=== PATIENT | male | born 1950 | race Asian ===

== ENCOUNTER 2018-01-07 10:11 | Inpatient (IN) | payer OTHER, MEDICAID ==
[~2018-01-07] VITALS: Ht 170.2 cm; Wt 68.5 kg
[2018-01-07] VITALS (18 sets, daily range): BP systolic 105–146; BP diastolic 45–81
[2018-01-07] MEDS ORDERED: ASPIR 8181 MG ORAL (10:15)
[2018-01-07] MEDS ORDERED: Sodium Chloride 500ML 500 ML IV ONE (10:15)
[2018-01-07] MEDS ORDERED: ACTOS15 MG ORAL (10:34)
[2018-01-07 10:41] LABS: MEAN CORPUSCULAR VOLUME 99 FL (80-99); PLATELET COUNT 245 K/UL (150-450); RED BLOOD COUNT 1.81 M/UL (4.70-6.10); RED CELL DISTRIBUTION WIDTH 12.6 % (11.6-14.8); WHITE BLOOD COUNT 6.1 K/UL (4.8-10.8)
[2018-01-07] MEDS ORDERED: GLIPIZIDE5 MG ORAL (10:44)
[2018-01-07] MEDS ORDERED: TRAVATAN Z5 ML OP (10:44)
[2018-01-07] MEDS ORDERED: METFORMIN HCL1000 M1 ORAL (10:44)
[2018-01-07] MEDS ORDERED: SERTRALINE HCL25 MG ORAL (10:44)
[2018-01-07] MEDS ORDERED: AVAPRO300 MG ORAL (10:44)
[2018-01-07] MEDS ORDERED: ATORVASTATIN CA40 MG ORAL (10:44)
[2018-01-07] MEDS ORDERED: GABAPENTIN300 MG ORAL (10:44)
[2018-01-07] MEDS ORDERED: METOPROLOL SUCC25 MG ORAL (10:44)
[2018-01-07] MEDS ORDERED: PROSCAR5 MG ORAL (10:44)
[2018-01-07] MEDS ORDERED: TAMSULOSIN HCL0.4 MG ORAL (10:44)
[2018-01-07] MEDS ORDERED: AMLODIPINE BESY10 MG ORAL (10:44)
[2018-01-07] MEDS ORDERED: MELOXICAM15 MG PO (10:44)
[2018-01-07] MEDS ORDERED: JANUVIA25 MG ORAL (10:44)
[2018-01-07 10:47] LABS: HEMOGLOBIN 5.6 G/DL (14.2-18.0)
[2018-01-07 10:49] LABS: ANION GAP 13 mmol/L (5-15); BLOOD UREA NITROGEN 44 mg/dL (7-18); CALCIUM 7.7 MG/DL (8.5-10.1); CARBON DIOXIDE 21 MMOL/L (21-32); CHLORIDE 109 MMOL/L (98-107); CREATININE 1.1 MG/DL (0.55-1.30); POTASSIUM 4.9 MMOL/L (3.5-5.1); SODIUM 143 MMOL/L (136-145)
--- NOTE | 2018-01-07 10:55 | Emergency Room Report ---
History of Present Illness General Chief Complaint: Gastrointestinal Bleed Source: Patient, EMS Present Illness HPI Patient present with initial complaint of syncopal episode Patient recalls feeling lightheaded and having a near syncopal sensation while going up the stairs patient reports earlier episode of vomiting and diarrhea he also reports episode of vomiting after the syncope with red blood in the vomitus Denies any chest pain denies any abdominal pain He reports that he feels improved compared to previous Patient reports taking medication for diabetes, high cholesterol and daily aspirin Denies any episode like this happening previously denies any endoscopies before Allergies: Coded Allergies: No Known Allergies (Unverified , 01/07/18) Patient History Past Medical History: see triage record Pertinent Family History: none Reviewed Nursing Documentation: PMH: Agreed; PSxH: Agreed Nursing Documentation-PMH Past Medical History: No History, Except For Hx Hypertension: Yes Hx Diabetes: Yes Review of Systems All Other Systems: negative except mentioned in HPI Physical Exam Vital Signs Date Time Temp Pulse Resp B/P (MAP) Pulse Ox O2 Delivery O2 Flow Rate FiO2 01/07/18 10:08 82 16 111/61 98 Room Air 01/07/18 10:19 98.6 98.6 Sp02 EP Interpretation: reviewed, normal General Appearance: well appearing, no apparent distress Head: normocephalic, atraumatic Eyes: bilateral eye PERRL, bilateral eye EOMI ENT: hearing grossly normal, other - Contusion to nasal bridge no active bleeding Neck: full range of motion, supple Respiratory: chest non-tender, lungs clear Cardiovascular #1: regular rate, rhythm Gastrointestinal: non tender, soft, no mass Musculoskeletal: normal inspection Neurologic: alert, oriented x3, responsive Skin: other - Mild jaundice appearance Lymphatic: no adenopathy Procedures Critical Care Time Critical Care Time 55 minutes for critical presentation, critical findings concerning for, cardiac , cardiopulmonary arrest and possible not including any procedural time Medical Decision Making Diagnostic Impression: Primary Impression: Gastrointestinal hemorrhage Additional Impression: Syncope ER Course Patient is a fairly complex patient with multiple differential to consideration including but not limited to cardiac cardiopulmonary and vascular emergencies Given the patient's complaints of vomiting blood GI bleeding is also considered Patient does have a mildly jaundiced appearance as well Thus far remaining hemodynamically stable patient's hemoglobin count does return at 5.6 Raising concern of acute GI bleed GI specialty's contacted emergently patient has Multiple medications including Protonix and octreotide drip initiated Requiring ICU admission in critical condition Labs Test 01/07/18 10:20 01/07/18 12:20 White Blood Count 6.1 K/UL (4.8-10.8) Red Blood Count 1.81 M/UL (4.70-6.10) Hemoglobin 5.6 G/DL (14.2-18.0) Hematocrit 18.0 % (42.0-52.0) Mean Corpuscular Volume 99 FL (80-99) Mean Corpuscular Hemoglobin 31.1 PG (27.0-31.0) Mean Corpuscular Hemoglobin Concent 31.4 G/DL (32.0-36.0) Red Cell Distribution Width 12.6 % (11.6-14.8) Platelet Count 245 K/UL (150-450) Mean Platelet Volume 5.8 FL (6.5-10.1) Neutrophils (%) (Auto) % (45.0-75.0) Lymphocytes (%) (Auto) % (20.0-45.0) Monocytes (%) (Auto) % (1.0-10.0) Eosinophils (%) (Auto) % (0.0-3.0) Basophils (%) (Auto) % (0.0-2.0) Differential Total Cells Counted 100 Neutrophils % (Manual) 64 % (45-75) Lymphocytes % (Manual) 22 % (20-45) Monocytes % (Manual) 12 % (1-10) Eosinophils % (Manual) 1 % (0-3) Basophils % (Manual) 1 % (0-2) Band Neutrophils 0 % (0-8) Platelet Estimate Adequate Platelet Morphology Normal Polychromasia 2+ Hypochromasia 4+ Anisocytosis 1+ Sodium Level 143 MMOL/L (136-145) Potassium Level 4.9 MMOL/L (3.5-5.1) Chloride Level 109 MMOL/L (98-107) Carbon Dioxide Level 21 MMOL/L (21-32) Anion Gap 13 mmol/L (5-15) Blood Urea Nitrogen 44 mg/dL (7-18) Creatinine 1.1 MG/DL (0.55-1.30) Estimat Glomerular Filtration Rate > 60 mL/min (>60) Glucose Level 305 MG/DL (74-106) Calcium Level 7.7 MG/DL (8.5-10.1) Total Bilirubin 0.4 MG/DL (0.2-1.0) Aspartate Amino Transf (AST/SGOT) 10 U/L (15-37) Alanine Aminotransferase (ALT/SGPT) 19 U/L (12-78) Alkaline Phosphatase 47 U/L (46-116) Total Creatine Kinase 93 U/L (26-308) Creatine Kinase MB 0.6 NG/ML (0.0-3.6) Creatine Kinase MB Relative Index 0.6 Troponin I 0.000 ng/mL (0.000-0.056) Total Protein 5.7 G/DL (6.4-8.2) Albumin 2.7 G/DL (3.4-5.0) Globulin 3.0 g/dL Albumin/Globulin Ratio 0.9 (1.0-2.7) Lipase 159 U/L (73-393) Serum Alcohol < 3 mg/dL Rhythm Strip Diag. Results EP Interpretation: yes Rate: 67 Rhythm: NSR, no PVC's, no ectopy Chest X-Ray Diagnostic Results Chest X-Ray Diagnostic Results : Chest X-Ray Ordered: Yes # of Views/Limited/Complete: 1 View Indication: Chest Pain Interpretation: no consolidation, no effusion, no pneumothorax Impression: No acute disease Electronically Signed by: Adiel Jennings DO Last Vital Signs Date Time Temp Pulse Resp B/P (MAP) Pulse Ox O2 Delivery O2 Flow Rate FiO2 01/07/18 10:19 98.6 85 20 120/45 95 Room Air 98.6 Status: improved Disposition: ADMITTED INPATIENT Condition: Critical Referrals: [facility] (PCP) Adiel Jennings DO Jan 07, 2018 10:55
[2018-01-07] MEDS ORDERED: SandoSTATIN 100mcg Inj IVP ONE (11:00)
[2018-01-07] MEDS ORDERED: Octreotide Acetate 500 MCG in Sodium Chloride 500ML 499 ML IV ONE (11:00)
[2018-01-07] MEDS ORDERED: SandoSTATIN 50mcg Inj IVP ONE (11:00)
[2018-01-07] MEDS ORDERED: Pantoprazole Inj IVP ONE (11:00)
[2018-01-07 11:02] LABS: ALANINE AMINOTRANSFERASE 19 U/L (12-78); ALBUMIN 2.7 G/DL (3.4-5.0); ALBUMIN/GLOBULIN RATIO 0.9 (1.0-2.7); ALKALINE PHOSPHATASE 47 U/L (46-116); ASPARTATE AMINO TRANSFERASE 10 U/L (15-37); BILIRUBIN,TOTAL 0.4 MG/DL (0.2-1.0); CKMB 0.6 NG/ML (0.0-3.6); CREATINE KINASE 93 U/L (26-308)
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
--- NOTE | 2018-01-07 12:30 | Diagnostic Imaging Report ---
Indication: Chest pain Technique: One view of the chest Comparison: none Findings: The heart is upper limits normal in size. The lungs and pleural spaces are clear. Impression: No acute process
[2018-01-07 12:57] LABS: APPEARANCE,URINE CLEAR; BILIRUBIN, URINE NEGATIVE (NEGATIVE); COLOR,URINE PALE YELLOW; GLUCOSE, URINE (UA) 4+ (NEGATIVE); KETONES,URINE 1+ (NEGATIVE); LEUKOCYTE ESTERASE ,URINE NEGATIVE (NEGATIVE); NITRITE,URINE NEGATIVE (NEGATIVE); PH,URINE 6 (4.5-8.0); PROTEIN,URINE NEGATIVE (NEGATIVE); UROBILINOGEN,URINE NORMAL MG/DL (0.0-1.0)
[2018-01-07 12:59] LABS: INR 1.2 (0.9-1.1)
--- NOTE | 2018-01-07 13:29 | GI Initial Consult Note ---
History of Present Illness General Date patient seen: Jan 07, 2018 Time patient seen: 13:25 Reason for Hospitalization: Gastrointestinal Bleed Referring physician: MARY LOU Reason for Consultation: UGIB Present Illness HPI Patient present with initial complaint of syncopal episode Patient recalls feeling lightheaded and having a near syncopal sensation while going up the stairs patient reports earlier episode of vomiting and diarrhea he also reports episode of vomiting after the syncope with red blood in the vomitus Denies any chest pain denies any abdominal pain He reports that he feels improved compared to previous Patient reports taking medication for diabetes, high cholesterol and daily aspirin Denies any episode like this happening previously denies any endoscopies before GI consulted for UGIB. Pt seen, awake A&Ox4 NAD no active hematemesis at this time. Had 2 episodes last night, one which resulted in a fall. The patient states he has been drinking approximately one bottle of soju daily for over 5 years. The patient has generalized jaundice. No known history of endoscopy / colonoscopy. Presents today with severe anemia low Hgb 5.6. No leukocytosis. Home Meds Reported Medications Glipizide* (GLIPIZIDE*) 5 Mg Tablet, 10 MG ORAL BIDAC, TAB 01/07/18 Gabapentin* (GABAPENTIN*) 300 Mg Capsule, 300 MG ORAL BEDTIME, CAP 01/07/18 Atorvastatin Calcium* (ATORVASTATIN CALCIUM*) 40 Mg Tablet, 40 MG ORAL BEDTIME, TAB 01/07/18 Travoprost (TRAVATAN Z) 5 Ml Drops, 5 ML OP TWICE A DAY, ML 01/07/18 Tamsulosin Hcl (TAMSULOSIN HCL*) 0.4 Mg Cap.er.24h, 0.4 MG ORAL BEDTIME, CAP 01/07/18 Metformin Hcl* (METFORMIN HCL*) 1,000 Mg Tablet, 1000 MG ORAL TWICE A DAY, TAB 01/07/18 Irbesartan* (AVAPRO*) 300 Mg Tablet, 300 MG ORAL DAILY, TAB 01/07/18 Sitagliptin* (JANUVIA*) 25 Mg Tablet, 100 MG ORAL DAILY, TAB 01/07/18 Meloxicam* (MELOXICAM*) 15 Mg Tablet, 15 MG PO DAILY, TAB 01/07/18 Amlodipine Besylate* (AMLODIPINE BESYLATE*) 10 Mg Tablet, 10 MG ORAL DAILY, TAB 01/07/18 Metoprolol Succinate* (METOPROLOL SUCCINATE*) 25 Mg Tab.er.24h, 25 MG ORAL DAILY , TAB 01/07/18 Finasteride* (PROSCAR*) 5 Mg Tablet, 5 MG ORAL DAILY, #30 TAB 0 Refills 01/07/18 Sertraline Hcl* (SERTRALINE HCL*) 25 Mg Tablet, 25 MG ORAL DAILY, TAB 01/07/18 Pioglitazone Hcl* (ACTOS*) 15 Mg Tablet, 15 MG ORAL DAILY, TAB 01/07/18 Aspirin* (ASPIR 81*) 81 Mg Tablet.dr, 81 MG ORAL DAILY, TAB 01/07/18 Med list reviewed/reconciled: Yes Allergies: Coded Allergies: No Known Allergies (Unverified , 01/07/18) Patient History History Provided By: Patient, Family Member, Medical Record PMH Narrative Past Medical History: see triage record Pertinent Family History: none Reviewed Nursing Documentation: PMH: Agreed; PSxH: Agreed Nursing Documentation-PMH Past Medical History: No History, Except For Hx Hypertension: Yes Hx Diabetes: Yes Social History: Reports: alcohol use Review of Systems All Other Systems: negative except mentioned in HPI Physical Exam Vital Signs Date Time Temp Pulse Resp B/P (MAP) Pulse Ox O2 Delivery O2 Flow Rate FiO2 01/07/18 10:08 82 16 111/61 98 Room Air 01/07/18 10:19 98.6 98.6 Sp02 EP Interpretation: reviewed, normal Labs Laboratory Tests Test 01/07/18 10:20 01/07/18 12:20 White Blood Count 6.1 K/UL (4.8-10.8) Red Blood Count 1.81 M/UL (4.70-6.10) L Hemoglobin 5.6 G/DL (14.2-18.0) *L Hematocrit 18.0 % (42.0-52.0) L Mean Corpuscular Volume 99 FL (80-99) Mean Corpuscular Hemoglobin 31.1 PG (27.0-31.0) H Mean Corpuscular Hemoglobin Concent 31.4 G/DL (32.0-36.0) L Red Cell Distribution Width 12.6 % (11.6-14.8) Platelet Count 245 K/UL (150-450) Mean Platelet Volume 5.8 FL (6.5-10.1) L Neutrophils (%) (Auto) % (45.0-75.0) Lymphocytes (%) (Auto) % (20.0-45.0) Monocytes (%) (Auto) % (1.0-10.0) Eosinophils (%) (Auto) % (0.0-3.0) Basophils (%) (Auto) % (0.0-2.0) Differential Total Cells Counted 100 Neutrophils % (Manual) 64 % (45-75) Lymphocytes % (Manual) 22 % (20-45) Monocytes % (Manual) 12 % (1-10) H Eosinophils % (Manual) 1 % (0-3) Basophils % (Manual) 1 % (0-2) Band Neutrophils 0 % (0-8) Platelet Estimate Adequate Platelet Morphology Normal Polychromasia 2+ Hypochromasia 4+ Anisocytosis 1+ Prothrombin Time 12.1 SEC (9.30-11.50) H Prothromb Time International Ratio 1.2 (0.9-1.1) H Sodium Level 143 MMOL/L (136-145) Potassium Level 4.9 MMOL/L (3.5-5.1) Chloride Level 109 MMOL/L (98-107) H Carbon Dioxide Level 21 MMOL/L (21-32) Anion Gap 13 mmol/L (5-15) Blood Urea Nitrogen 44 mg/dL (7-18) H Creatinine 1.1 MG/DL (0.55-1.30) Estimat Glomerular Filtration Rate > 60 mL/min (>60) Glucose Level 305 MG/DL (74-106) H Calcium Level 7.7 MG/DL (8.5-10.1) L Total Bilirubin 0.4 MG/DL (0.2-1.0) Aspartate Amino Transf (AST/SGOT) 10 U/L (15-37) L Alanine Aminotransferase (ALT/SGPT) 19 U/L (12-78) Alkaline Phosphatase 47 U/L (46-116) Total Creatine Kinase 93 U/L (26-308) Creatine Kinase MB 0.6 NG/ML (0.0-3.6) Creatine Kinase MB Relative Index 0.6 Troponin I 0.000 ng/mL (0.000-0.056) Total Protein 5.7 G/DL (6.4-8.2) L Albumin 2.7 G/DL (3.4-5.0) L Globulin 3.0 g/dL Albumin/Globulin Ratio 0.9 (1.0-2.7) L Lipase 159 U/L (73-393) Serum Alcohol < 3 mg/dL Urine Color Pale yellow Urine Appearance Clear Urine pH 6 (4.5-8.0) Urine Specific [place] 1.015 (1.005-1.035) Urine Protein Negative (NEGATIVE) Urine Glucose (UA) 4+ (NEGATIVE) H Urine Ketones 1+ (NEGATIVE) H Urine Blood Negative (NEGATIVE) Urine Nitrite Negative (NEGATIVE) Urine Bilirubin Negative (NEGATIVE) Urine Urobilinogen Normal MG/DL (0.0-1.0) Urine Leukocyte Esterase Negative (NEGATIVE) Urine Opiates Screen Negative (NEGATIVE) Urine Barbiturates Screen Negative (NEGATIVE) Phencyclidine (PCP) Screen Negative (NEGATIVE) Urine Amphetamines Screen Negative (NEGATIVE) Urine Benzodiazepines Screen Negative (NEGATIVE) Urine Cocaine Screen Negative (NEGATIVE) Urine Marijuana (THC) Screen Negative (NEGATIVE) General Appearance: well appearing, no apparent distress, alert, other - jaundice Head: normocephalic EENT: PERRL/EOMI, normal ENT inspection Neck: supple Respiratory: normal breath sounds, no respiratory distress Cardiovascular: normal rate Gastrointestinal: normal inspection, non tender, soft, normal bowel sounds, non -distended Rectal: deferred Genitourinary: deferred Musculoskeletal: normal inspection, back normal Neurologic: normal inspection, alert, oriented x3, responsive Psychiatric: normal inspection, judgement/insight normal, memory normal Skin: normal inspection, normal color, no rash, warm/dry, palpation normal, well hydrated Lymphatic: normal inspection, no adenopathy Current Medications Current Medications Medications (Trade) Dose Ordered Sig/Jesusita Route PRN Reason Start Time Stop Time Status Last Admin Dose Admin Octreotide Acetate 500 mcg/ Sodium Chloride 500 ml @ 50 mls/hr Q10H ONCE IV 01/07/18 11:00 01/07/18 20:59 01/07/18 11:06 GI: Plan Problems: (1) Esophageal varices (2) Syncope (3) Gastrointestinal hemorrhage (4) Alcohol abuse Plan EGD scheduled for tomorrow. - maintain NPO + IVFs - start patient on ppi and octreotide gtt - hold all blood thinners anemia work up monitor H&H, prn transfusions bowel regime ppi fu labs will follow with additional recs post procedure Discussed with Dr. James. Thank you for this patient referral, we will follow. The patient was seen and examined at bedside and all new and available data was reviewed in the patients chart. I agree with the above findings, impression and plan. (Patient seen earlier today. Signature stamp does not reflect patient encounter time.). - MD Joceline BarraganCookie-Jose Luis SHANNAN Jan 07, 2018 13:29
[2018-01-07] MEDS ORDERED: LORazepam 1mg tab ORAL PRN (14:15)
[2018-01-07] MEDS ORDERED: Thiamine 100mg tab ORAL SCH (14:42)
--- NOTE | 2018-01-07 15:01 | History and Physical ---
History of Present Illness General Date patient seen: Jan 07, 2018 Time patient seen: 14:00 Reason for Hospitalization: Gastrointestinal Bleed Present Illness HPI 67 yo M PMH Etoh abuse ( one bottle per day for 5 years), HTN, CHF?, DM, presented for two episodes of hematemesis and feeling light headed. Patient does not speak good nicaraguan but son is at bedside as microwave engineer. Patient states he does not know how much blood he vomited and this has never happened to him before. He has never has an EGD in the past nor has a been told he has verices or liver cirrhosis. Patient denies pain, dizziness or LOC, or orthopnea. Patient admits to DAO. Patient FULL CODE Per patients pharmacy ([phone]) Home Meds: pioglitazone atorvastatin certraline finasteride glipizide metoprolol amlodipine januvia meloxicam gabapentin ibersartan metformin tamsulosin Allergies: Coded Allergies: No Known Allergies (Unverified , 01/07/18) Medication History Scheduled Amlodipine Besylate* (Amlodipine Besylate*), 10 MG ORAL DAILY, (Reported) Aspirin* (Aspir 81*), 81 MG ORAL DAILY, (Reported) Atorvastatin Calcium* (Atorvastatin Calcium*), 40 MG ORAL BEDTIME, (Reported) Finasteride* (Proscar*), 5 MG ORAL DAILY, (Reported) Gabapentin* (Gabapentin*), 300 MG ORAL BEDTIME, (Reported) Glipizide* (Glipizide*), 10 MG ORAL BIDAC, (Reported) Irbesartan* (Avapro*), 300 MG ORAL DAILY, (Reported) Meloxicam* (Meloxicam*), 15 MG PO DAILY, (Reported) Metformin Hcl* (Metformin Hcl*), 1,000 MG ORAL TWICE A DAY, (Reported) Metoprolol Succinate* (Metoprolol Succinate*), 25 MG ORAL DAILY, (Reported) Pioglitazone Hcl* (Actos*), 15 MG ORAL DAILY, (Reported) Sertraline Hcl* (Sertraline Hcl*), 25 MG ORAL DAILY, (Reported) Sitagliptin* (Januvia*), 100 MG ORAL DAILY, (Reported) Tamsulosin Hcl (Tamsulosin Hcl*), 0.4 MG ORAL BEDTIME, (Reported) Travoprost (Travatan Z), 5 ML OP TWICE A DAY, (Reported) Patient History Limited by: language barrier History Provided By: Family Member - son Healthcare decision maker Resuscitation status Advanced Directive on File Past Medical/Surgical History Past Medical/Surgical History: (1) CHF (congestive heart failure) (2) Hypertension (3) Diabetes (4) Alcohol abuse Social History Social History: (1) Alcohol abuse Review of Systems All Other Systems: negative except mentioned in HPI ROS Narrative aside from HPI all other ROS are negative including more than 12 systems Physical Exam General Appearance: WD/WN, no apparent distress, alert Lines, tubes and drains: peripheral HEENT: normocephalic, atraumatic, anicteric, mucous membranes moist, PERRL Neck: non-tender, normal alignment, supple, normal inspection Respiratory/Chest: chest wall non-tender, lungs clear, normal breath sounds, no respiratory distress, no accessory muscle use Cardiovascular/Chest: normal peripheral pulses, normal rate, regular rhythm, regularly irregular, no gallop/murmur, no JVD Abdomen: normal bowel sounds, non tender, soft, no organomegaly, no mass, abnormal bowel sounds Extremities: normal range of motion, non-tender, normal inspection, normal capillary refill, non-pitting Skin Exam: normal pigmentation, cyanotic 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: 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, no motor/sensory deficits, oriented x 3 , normal mood/affect Musculoskeletal: no effusion Last 24 Hour Vital Signs Date Time Temp Pulse Resp B/P (MAP) Pulse Ox O2 Delivery O2 Flow Rate FiO2 01/07/18 14:45 98.4 87 13 136/55 99 Room Air 01/07/18 14:40 98.1 84 20 136/64 100 Room Air 01/07/18 14:00 97.8 87 18 120/65 100 Room Air 01/07/18 13:29 98.4 88 18 106/68 99 Room Air 01/07/18 12:45 97.9 82 17 115/61 100 Room Air 97.9 01/07/18 12:30 98.7 85 15 117/61 99 Room Air 98.7 01/07/18 12:15 98.9 88 20 105/81 99 Room Air 98.9 01/07/18 12:10 98.7 91 19 118/51 100 Room Air 98.7 01/07/18 12:05 97.9 83 13 125/54 100 Room Air 97.9 01/07/18 12:00 97.3 87 13 109/60 99 Room Air 97.3 01/07/18 12:00 97.3 87 13 01/07/18 11:35 98.6 83 13 136/62 99 Room Air 98.6 01/07/18 11:09 85 13 Room Air 01/07/18 10:19 98.6 85 20 120/45 95 Room Air 98.6 01/07/18 10:08 82 16 111/61 98 Room Air Laboratory Tests Test 01/07/18 10:20 01/07/18 12:20 White Blood Count 6.1 K/UL (4.8-10.8) Red Blood Count 1.81 M/UL (4.70-6.10) L Hemoglobin 5.6 G/DL (14.2-18.0) *L Hematocrit 18.0 % (42.0-52.0) L Mean Corpuscular Volume 99 FL (80-99) Mean Corpuscular Hemoglobin 31.1 PG (27.0-31.0) H Mean Corpuscular Hemoglobin Concent 31.4 G/DL (32.0-36.0) L Red Cell Distribution Width 12.6 % (11.6-14.8) Platelet Count 245 K/UL (150-450) Mean Platelet Volume 5.8 FL (6.5-10.1) L Neutrophils (%) (Auto) % (45.0-75.0) Lymphocytes (%) (Auto) % (20.0-45.0) Monocytes (%) (Auto) % (1.0-10.0) Eosinophils (%) (Auto) % (0.0-3.0) Basophils (%) (Auto) % (0.0-2.0) Differential Total Cells Counted 100 Neutrophils % (Manual) 64 % (45-75) Lymphocytes % (Manual) 22 % (20-45) Monocytes % (Manual) 12 % (1-10) H Eosinophils % (Manual) 1 % (0-3) Basophils % (Manual) 1 % (0-2) Band Neutrophils 0 % (0-8) Platelet Estimate Adequate Platelet Morphology Normal Polychromasia 2+ Hypochromasia 4+ Anisocytosis 1+ Prothrombin Time 12.1 SEC (9.30-11.50) H Prothromb Time International Ratio 1.2 (0.9-1.1) H Sodium Level 143 MMOL/L (136-145) Potassium Level 4.9 MMOL/L (3.5-5.1) Chloride Level 109 MMOL/L (98-107) H Carbon Dioxide Level 21 MMOL/L (21-32) Anion Gap 13 mmol/L (5-15) Blood Urea Nitrogen 44 mg/dL (7-18) H Creatinine 1.1 MG/DL (0.55-1.30) Estimat Glomerular Filtration Rate > 60 mL/min (>60) Glucose Level 305 MG/DL (74-106) H Calcium Level 7.7 MG/DL (8.5-10.1) L Total Bilirubin 0.4 MG/DL (0.2-1.0) Aspartate Amino Transf (AST/SGOT) 10 U/L (15-37) L Alanine Aminotransferase (ALT/SGPT) 19 U/L (12-78) Alkaline Phosphatase 47 U/L (46-116) Total Creatine Kinase 93 U/L (26-308) Creatine Kinase MB 0.6 NG/ML (0.0-3.6) Creatine Kinase MB Relative Index 0.6 Troponin I 0.000 ng/mL (0.000-0.056) Total Protein 5.7 G/DL (6.4-8.2) L Albumin 2.7 G/DL (3.4-5.0) L Globulin 3.0 g/dL Albumin/Globulin Ratio 0.9 (1.0-2.7) L Lipase 159 U/L (73-393) Serum Alcohol < 3 mg/dL Urine Color Pale yellow Urine Appearance Clear Urine pH 6 (4.5-8.0) Urine Specific [place] 1.015 (1.005-1.035) Urine Protein Negative (NEGATIVE) Urine Glucose (UA) 4+ (NEGATIVE) H Urine Ketones 1+ (NEGATIVE) H Urine Blood Negative (NEGATIVE) Urine Nitrite Negative (NEGATIVE) Urine Bilirubin Negative (NEGATIVE) Urine Urobilinogen Normal MG/DL (0.0-1.0) Urine Leukocyte Esterase Negative (NEGATIVE) Urine Opiates Screen Negative (NEGATIVE) Urine Barbiturates Screen Negative (NEGATIVE) Phencyclidine (PCP) Screen Negative (NEGATIVE) Urine Amphetamines Screen Negative (NEGATIVE) Urine Benzodiazepines Screen Negative (NEGATIVE) Urine Cocaine Screen Negative (NEGATIVE) Urine Marijuana (THC) Screen Negative (NEGATIVE) Height (Feet): 5 Height (Inches): 7.00 Weight (Pounds): 150 Medications Current Medications Medications (Trade) Dose Ordered Sig/Jesusita Route PRN Reason Start Time Stop Time Status Last Admin Dose Admin Acetaminophen (Tylenol) 650 mg Q4H ORAL 01/07/18 14:15 02/06/18 14:14 Dextrose (Dextrose 50%) 25 ml Q30M PRN IV Hypoglycemia 01/07/18 14:15 02/06/18 14:14 Dextrose (Dextrose 50%) 50 ml Q30M PRN IV Hypoglycemia 01/07/18 14:15 02/06/18 14:14 Folic Acid (Folate) 1 mg DAILY ORAL 01/08/18 09:00 02/07/18 08:59 Lorazepam (Ativan) 2 mg Q4H PRN ORAL AGITATION 01/07/18 14:15 01/14/18 14:14 Octreotide Acetate 500 mcg/ Sodium Chloride 500 ml @ 50 mls/hr Q10H IV 01/07/18 20:00 02/06/18 19:59 Octreotide Acetate 500 mcg/ Sodium Chloride 500 ml @ 50 mls/hr Q10H ONCE IV 01/07/18 11:00 01/07/18 20:59 01/07/18 11:06 Ondansetron HCl (Zofran ODT) 4 mg Q6H PRN ORAL Nausea & Vomiting 01/07/18 14:15 02/06/18 14:14 Ondansetron HCl (Zofran) 4 mg Q6H PRN IVP Nausea & Vomiting 01/07/18 14:15 02/06/18 14:14 Pantoprazole 80 mg/Sodium Chloride 250 ml @ 25 mls/hr Q10H IV 01/07/18 15:30 02/06/18 15:29 Thiamine HCl (Vitamin B1) 100 mg ONCE ORAL 01/07/18 14:42 01/07/18 18:00 Assessment/Plan Problem List: (1) Gastrointestinal hemorrhage ICD Codes: K92.2 - Gastrointestinal hemorrhage, unspecified SNOMED: 32370646 (2) Diabetes ICD Codes: E11.9 - Type 2 diabetes mellitus without complications SNOMED: 96797382 (3) Hypertension ICD Codes: I10 - Essential (primary) hypertension SNOMED: 34427901 (4) CHF (congestive heart failure) ICD Codes: I50.9 - Heart failure, unspecified SNOMED: 88640987 (5) Alcohol abuse ICD Codes: F10.10 - Alcohol abuse, uncomplicated SNOMED: 93592173 Assessment/Plan UGIB (hgb 5.6) likely 22 verices vs ulcer vs duelfoy lesion - check h and h q 6 hours and transfuse < 7 - 2 units PRBC from the ER - hemodynamic monitoring - admit to ICU - hold IVF in the setting of possible CHF unless hemodynamically unstable - appreciate GI reqs for EGD in AM, NPO after midnight except for meds - protonix gtt and octreotide gtt - no signs of ascites, does not require rocephin at this time - appreciate ICU consult as well HTN - hold meds in the setting of bleed - add home meds once stable DM - levemir, lispro and ISS CHF - hold asa and heart meds in setting of bleed BPH -hold untill bp stable - keep map > 60 Etoh Abuse - thiamine and folic acid - ativan PRN for seizures - monitor for withdrawal - cessation education - CM Dispo - home with son I spent more than 70 minutes for patient care, counseling and coordination of care with consulting physicians as well as gathering information from outside resources. Thank you for admission, please feel free to call us with any concerns at [facility] [phone] Lindsey Granda DO Jan 07, 2018 15:01
[2018-01-07] MEDS: Pantoprazole 80 MG in NS 250 ML IV SCH ×2 (15:30→19:28)
[2018-01-07] MEDS: Octreotide Acetate 500 MCG in Sodium Chloride 500ML 499 ML IV SCH ×2 (15:30→21:34)
--- NOTE | 2018-01-07 16:06 | Cardiac Electrophysiology PN ---
Subjective Subjective [id number] Objective Last 24 Hour Vital Signs Date Time Temp Pulse Resp B/P (MAP) Pulse Ox O2 Delivery O2 Flow Rate FiO2 01/07/18 15:10 97.1 86 20 125/64 100 Room Air 01/07/18 14:55 97.1 86 20 125/64 100 Room Air 01/07/18 14:50 98.6 85 15 131/58 100 Room Air 01/07/18 14:45 98.4 87 13 136/55 99 Room Air 01/07/18 14:40 98.1 84 20 136/64 100 Room Air 01/07/18 14:00 97.8 87 18 120/65 100 Room Air 01/07/18 13:29 98.4 88 18 106/68 99 Room Air 01/07/18 12:45 97.9 82 17 115/61 100 Room Air 97.9 01/07/18 12:30 98.7 85 15 117/61 99 Room Air 98.7 01/07/18 12:15 98.9 88 20 105/81 99 Room Air 98.9 01/07/18 12:10 98.7 91 19 118/51 100 Room Air 98.7 01/07/18 12:05 97.9 83 13 125/54 100 Room Air 97.9 01/07/18 12:00 97.3 87 13 109/60 99 Room Air 97.3 01/07/18 12:00 97.3 87 13 01/07/18 11:35 98.6 83 13 136/62 99 Room Air 98.6 01/07/18 11:09 85 13 Room Air 01/07/18 10:19 98.6 85 20 120/45 95 Room Air 98.6 01/07/18 10:08 82 16 111/61 98 Room Air Laboratory Tests Test 01/07/18 10:20 01/07/18 12:20 White Blood Count 6.1 K/UL (4.8-10.8) Red Blood Count 1.81 M/UL (4.70-6.10) L Hemoglobin 5.6 G/DL (14.2-18.0) *L Hematocrit 18.0 % (42.0-52.0) L Mean Corpuscular Volume 99 FL (80-99) Mean Corpuscular Hemoglobin 31.1 PG (27.0-31.0) H Mean Corpuscular Hemoglobin Concent 31.4 G/DL (32.0-36.0) L Red Cell Distribution Width 12.6 % (11.6-14.8) Platelet Count 245 K/UL (150-450) Mean Platelet Volume 5.8 FL (6.5-10.1) L Neutrophils (%) (Auto) % (45.0-75.0) Lymphocytes (%) (Auto) % (20.0-45.0) Monocytes (%) (Auto) % (1.0-10.0) Eosinophils (%) (Auto) % (0.0-3.0) Basophils (%) (Auto) % (0.0-2.0) Differential Total Cells Counted 100 Neutrophils % (Manual) 64 % (45-75) Lymphocytes % (Manual) 22 % (20-45) Monocytes % (Manual) 12 % (1-10) H Eosinophils % (Manual) 1 % (0-3) Basophils % (Manual) 1 % (0-2) Band Neutrophils 0 % (0-8) Platelet Estimate Adequate Platelet Morphology Normal Polychromasia 2+ Hypochromasia 4+ Anisocytosis 1+ Prothrombin Time 12.1 SEC (9.30-11.50) H Prothromb Time International Ratio 1.2 (0.9-1.1) H Sodium Level 143 MMOL/L (136-145) Potassium Level 4.9 MMOL/L (3.5-5.1) Chloride Level 109 MMOL/L (98-107) H Carbon Dioxide Level 21 MMOL/L (21-32) Anion Gap 13 mmol/L (5-15) Blood Urea Nitrogen 44 mg/dL (7-18) H Creatinine 1.1 MG/DL (0.55-1.30) Estimat Glomerular Filtration Rate > 60 mL/min (>60) Glucose Level 305 MG/DL (74-106) H Calcium Level 7.7 MG/DL (8.5-10.1) L Total Bilirubin 0.4 MG/DL (0.2-1.0) Aspartate Amino Transf (AST/SGOT) 10 U/L (15-37) L Alanine Aminotransferase (ALT/SGPT) 19 U/L (12-78) Alkaline Phosphatase 47 U/L (46-116) Total Creatine Kinase 93 U/L (26-308) Creatine Kinase MB 0.6 NG/ML (0.0-3.6) Creatine Kinase MB Relative Index 0.6 Troponin I 0.000 ng/mL (0.000-0.056) Total Protein 5.7 G/DL (6.4-8.2) L Albumin 2.7 G/DL (3.4-5.0) L Globulin 3.0 g/dL Albumin/Globulin Ratio 0.9 (1.0-2.7) L Lipase 159 U/L (73-393) Serum Alcohol < 3 mg/dL Urine Color Pale yellow Urine Appearance Clear Urine pH 6 (4.5-8.0) Urine Specific [place] 1.015 (1.005-1.035) Urine Protein Negative (NEGATIVE) Urine Glucose (UA) 4+ (NEGATIVE) H Urine Ketones 1+ (NEGATIVE) H Urine Blood Negative (NEGATIVE) Urine Nitrite Negative (NEGATIVE) Urine Bilirubin Negative (NEGATIVE) Urine Urobilinogen Normal MG/DL (0.0-1.0) Urine Leukocyte Esterase Negative (NEGATIVE) Urine Opiates Screen Negative (NEGATIVE) Urine Barbiturates Screen Negative (NEGATIVE) Phencyclidine (PCP) Screen Negative (NEGATIVE) Urine Amphetamines Screen Negative (NEGATIVE) Urine Benzodiazepines Screen Negative (NEGATIVE) Urine Cocaine Screen Negative (NEGATIVE) Urine Marijuana (THC) Screen Negative (NEGATIVE) Aaron Lindsey MD Jan 07, 2018 16:06
[2018-01-07] MEDS ORDERED: Octreotide Acetate 500 MCG in Sodium Chloride 500ML 499 ML IV SCH (17:30)
[2018-01-07 17:35] LABS: % IRON SATURATION 21 % (15-50); IRON 73 ug/dL (50-175); TOTAL IRON BINDING CAPACITY 353 ug/dL (250-450)
[2018-01-07] MEDS ORDERED: Pantoprazole Inj IVP SCH (18:00)
[2018-01-07 19:10] LABS: BASOPHILS % (AUTO) 0.4 % (0.0-2.0); EOSINOPHILS % (AUTO) 0.2 % (0.0-3.0); HEMATOCRIT 25.2 % (42.0-52.0); HEMOGLOBIN 8.5 G/DL (14.2-18.0); LYMPHOCYTES % (AUTO) 19.2 % (20.0-45.0); MEAN CORPUSCULAR VOLUME 93 FL (80-99); MONOCYTES % (AUTO) 8.5 % (1.0-10.0); NEUTROPHILS % (AUTO) 71.6 % (45.0-75.0); PLATELET COUNT 205 K/UL (150-450); WHITE BLOOD COUNT 9.4 K/UL (4.8-10.8)
[2018-01-07] MEDS: Metoprolol Tartrate 12.5mg TAB NG SCH (20:38)
[2018-01-07] MEDS ORDERED: Levemir Flexpen SUBQ SCH (21:00)
[2018-01-08] VITALS (18 sets, daily range): BP systolic 87–138; BP diastolic 58–103
[2018-01-08 01:24] LABS: HEMATOCRIT 23.3 % (42.0-52.0); HEMOGLOBIN 7.9 G/DL (14.2-18.0); MEAN CORPUSCULAR VOLUME 92 FL (80-99); PLATELET COUNT 194 K/UL (150-450); RED BLOOD COUNT 2.54 M/UL (4.70-6.10); RED CELL DISTRIBUTION WIDTH 13.9 % (11.6-14.8); WHITE BLOOD COUNT 8.2 K/UL (4.8-10.8)
--- NOTE | 2018-01-08 03:00 | Consultation ---
DATE OF CONSULTATION: 01/07/2018 CARDIOLOGY CONSULTATION CONSULTING PHYSICIAN: Aaorn Lindsey M.D. REFERRING PHYSICIAN: Zacarias Fitzgerald M.D. ADDITIONAL REFERRING PHYSICIAN: Gary Arrington M.D. REASON FOR CONSULTATION: Management of hypertension and congestive heart failure. HISTORY OF PRESENT ILLNESS: The patient is a 67-year-old gentleman with history of heavy alcohol use weekly one bottle per day for the last five years who has hypertension and diabetes, presented with two episodes of hematemesis and feeling lightheaded. The patient was noted to have a hemoglobin of only 5, admitted to the intensive care unit. The patient never had an EGD before and never has been told he has cirrhosis of the liver or biopsies. The patient was admitted, and a Cardiology consultation was obtained for further evaluation and management. REVIEW OF SYSTEMS: Review of systems was negative other than what was mentioned in the history of present illness. PAST MEDICAL HISTORY: As mentioned above. MEDICATIONS: Include Toprol-XL 25 mg daily, Norvasc 10 mg daily, Januvia 50 mg daily, irbesartan, metformin, and Flomax. FAMILY HISTORY: Noncontributory. SOCIAL HISTORY: He lives at home. He does not smoke or drink alcohol. PHYSICAL EXAMINATION: VITAL SIGNS: Blood pressure of 125/64, pulse 86, respirations 20, and temperature 97.1. HEAD AND NECK: No JVD. LUNGS: Clear. CARDIOVASCULAR: Regular S1 and S2 with no gallop or murmur. ABDOMEN: Soft. EXTREMITIES: No pitting edema. LABORATORY AND DIAGNOSTIC DATA: His EKG shows normal sinus rhythm, normal electrocardiogram. Labs show white count of 6.1, hemoglobin of 5.6, hematocrit of 18, and platelet count of 245. Sodium is 142, potassium 4.9, BUN 44, creatinine 1.1, glucose . Troponin is negative. Urine toxicology is negative. INR is 1.2. UA shows 4+ glucose. ASSESSMENT AND PLAN: 1. History of hypertension. In view of the patient's acute GI bleed and borderline blood pressure, we will hold off on his blood pressure medication. If his blood pressure becomes more stabilized, I will first resume metoprolol 25 mg daily. 2. Diabetes insulin. The patient was on Avapro 300 mg daily that would be resumed when the blood pressure becomes more stable. 3. Acute GI bleed. The patient was evaluated by Dr. James. GI evaluation is pending. The patient will likely need EGD and likely . 4. Heavy alcohol use. 5. Syncope anemia and alcohol use. Thank you very much, Dr. Fitzgerald, for allowing me to participate in the care of this patient. Please do not hesitate to contact me for any questions regarding my evaluation. Sincerely, Aaron Lindsey M.D. DR: PEACE JOB#: [id number] CC:
[2018-01-08 05:35] LABS: INR 1.1 (0.9-1.1)
[2018-01-08] MEDS: Pantoprazole 80 MG in NS 250 ML IV SCH ×2 (05:39→20:43)
[2018-01-08 05:53] LABS: ALANINE AMINOTRANSFERASE 19 U/L (12-78); ALBUMIN 2.8 G/DL (3.4-5.0); ALKALINE PHOSPHATASE 46 U/L (46-116); ANION GAP 9 mmol/L (5-15); ASPARTATE AMINO TRANSFERASE 12 U/L (15-37); BILIRUBIN,TOTAL 0.8 MG/DL (0.2-1.0); BLOOD UREA NITROGEN 26 mg/dL (7-18); CALCIUM 7.7 MG/DL (8.5-10.1); CARBON DIOXIDE 25 MMOL/L (21-32); CHLORIDE 111 MMOL/L (98-107); CREATININE 0.9 MG/DL (0.55-1.30); POTASSIUM 3.8 MMOL/L (3.5-5.1); SODIUM 145 MMOL/L (136-145)
[2018-01-08 05:56] LABS: ALANINE AMINOTRANSFERASE 19 U/L (12-78); ALBUMIN 2.8 G/DL (3.4-5.0); ALKALINE PHOSPHATASE 47 U/L (46-116); ANION GAP 9 mmol/L (5-15); ASPARTATE AMINO TRANSFERASE 11 U/L (15-37); BILIRUBIN,DIRECT 0.2 MG/DL (0.0-0.3); BILIRUBIN,TOTAL 0.8 MG/DL (0.2-1.0); BLOOD UREA NITROGEN 25 mg/dL (7-18); CALCIUM 7.6 MG/DL (8.5-10.1); CARBON DIOXIDE 25 MMOL/L (21-32); CHLORIDE 111 MMOL/L (98-107); CHOLESTEROL 104 MG/DL (< 200); CREATININE 0.9 MG/DL (0.55-1.30); HDL CHOLESTEROL 32 MG/DL (40-60); PHOSPHORUS 2.3 MG/DL (2.5-4.9); POTASSIUM 3.8 MMOL/L (3.5-5.1); SODIUM 145 MMOL/L (136-145); TRIGLYCERIDES 143 MG/DL (30-150)
[2018-01-08 06:55] LABS: BASOPHILS % (AUTO) 0.4 % (0.0-2.0); EOSINOPHILS % (AUTO) 1.5 % (0.0-3.0); HEMATOCRIT 24.1 % (42.0-52.0); HEMOGLOBIN 8.3 G/DL (14.2-18.0); LYMPHOCYTES % (AUTO) 20.3 % (20.0-45.0); MEAN CORPUSCULAR VOLUME 91 FL (80-99); MONOCYTES % (AUTO) 8.9 % (1.0-10.0); PLATELET COUNT 202 K/UL (150-450); RED BLOOD COUNT 2.66 M/UL (4.70-6.10); RED CELL DISTRIBUTION WIDTH 14.1 % (11.6-14.8); WHITE BLOOD COUNT 6.9 K/UL (4.8-10.8)
[2018-01-08] MEDS: Octreotide Acetate 500 MCG in Sodium Chloride 500ML 499 ML IV SCH (08:47)
[2018-01-08] MEDS: Metoprolol Tartrate 12.5mg TAB NG SCH ×2 (09:00→20:44)
[2018-01-08] MEDS ORDERED: Phospha 250 Neutral tab ORAL ONE (09:30)
--- NOTE | 2018-01-08 10:10 | General Progress Note ---
Assessment/Plan Problem List: (1) Gastrointestinal hemorrhage ICD Codes: K92.2 - Gastrointestinal hemorrhage, unspecified SNOMED: 24985647 (2) Diabetes ICD Codes: E11.9 - Type 2 diabetes mellitus without complications SNOMED: 78170573 (3) Hypertension ICD Codes: I10 - Essential (primary) hypertension SNOMED: 24633739 (4) CHF (congestive heart failure) ICD Codes: I50.9 - Heart failure, unspecified SNOMED: 25100463 (5) Alcohol abuse ICD Codes: F10.10 - Alcohol abuse, uncomplicated SNOMED: 51827385 (6) Hypoalbuminemia ICD Codes: E88.09 - Other disorders of plasma-protein metabolism, not elsewhere classified SNOMED: 103097340 (7) Hypomagnesemia ICD Codes: E83.42 - Hypomagnesemia SNOMED: 273052582 Assessment/Plan UGIB (hgb 5.6) likely 22 verices vs ulcer vs duelfoy lesion - appreciate consult by Dr. Fitzgerald and Dr Pickard - f/u with EGD plan for today - 2 units PRBC from the ER , hgb stable since - hemodynamic monitoring - admit to ICU - hold IVF in the setting of possible CHF unless hemodynamically unstable - protonix gtt and octreotide gtt - no signs of ascites, does not require rocephin at this time HTN - ok to restart meds DM (a21 6, suspect possible inaccurate in the setting of severe anemia, will repeat) - levemir, lispro and ISS CHF - hold asa in setting of bleed - appreciate cards consult by Dr Lindsey - prelim echo EF WNL BPH -ok to restart meds, BP stable Etoh Abuse - thiamine and folic acid - ativan PRN for seizures - monitor for withdrawal - cessation education - CM Hypomagnesemia - replace as necessary Hypoalbuminemia 2/2 nutritional status and possible liver damage 2/2 etoh - nutritional support once on diet - rec ensure TID Dispo - home with son Subjective Date patient seen: Jan 08, 2018 Time patient seen: 09:00 Allergies: Coded Allergies: No Known Allergies (Unverified , 01/07/18) All Systems: reviewed and negative except above Subjective patient denies dizziness, hematemesis, nausea or vomiting. Objective Last 24 Hour Vital Signs Date Time Temp Pulse Resp B/P (MAP) Pulse Ox O2 Delivery O2 Flow Rate FiO2 01/08/18 09:00 68 14 127/60 (82) 96 01/08/18 08:00 Room Air 01/08/18 08:00 99.0 68 13 131/62 (85) 96 01/08/18 07:00 70 15 112/58 (76) 92 01/08/18 06:00 71 14 123/63 (83) 96 01/08/18 05:00 70 14 119/96 (104) 99 01/08/18 04:00 72 01/08/18 04:00 60 15 96/61 (73) 99 01/08/18 04:00 Room Air 01/08/18 03:00 61 15 110/64 (79) 97 01/08/18 02:00 67 16 110/64 (79) 96 01/08/18 01:00 73 16 110/64 (79) 99 01/08/18 00:00 97.9 75 17 131/62 (85) 97 01/08/18 00:00 Room Air 01/08/18 00:00 76 01/07/18 23:00 76 16 136/57 (83) 97 01/07/18 22:00 78 20 118/63 (81) 97 01/07/18 21:00 76 20 146/59 (88) 97 01/07/18 20:38 79 128/71 01/07/18 20:00 98.0 76 20 131/68 (89) 98 01/07/18 20:00 78 01/07/18 20:00 Room Air 01/07/18 16:03 Room Air 01/07/18 16:00 77 01/07/18 16:00 Room Air 01/07/18 15:31 Room Air 01/07/18 15:10 97.1 86 20 125/64 100 Room Air 01/07/18 14:55 97.1 86 20 125/64 100 Room Air 01/07/18 14:50 98.6 85 15 131/58 100 Room Air 01/07/18 14:45 98.4 87 13 136/55 99 Room Air 01/07/18 14:40 98.1 84 20 136/64 100 Room Air 01/07/18 14:00 97.8 87 18 120/65 100 Room Air 01/07/18 13:29 98.4 88 18 106/68 99 Room Air 01/07/18 12:45 97.9 82 17 115/61 100 Room Air 97.9 01/07/18 12:30 98.7 85 15 117/61 99 Room Air 98.7 01/07/18 12:15 98.9 88 20 105/81 99 Room Air 98.9 01/07/18 12:10 98.7 91 19 118/51 100 Room Air 98.7 01/07/18 12:05 97.9 83 13 125/54 100 Room Air 97.9 01/07/18 12:00 97.3 87 13 109/60 99 Room Air 97.3 01/07/18 12:00 97.3 87 13 01/07/18 11:35 98.6 83 13 136/62 99 Room Air 98.6 01/07/18 11:09 85 13 Room Air 01/07/18 10:19 98.6 85 20 120/45 95 Room Air 98.6 01/07/18 10:08 82 16 111/61 98 Room Air Intake and Output 01/07/18 01/08/18 18:59 06:59 Intake Total 1150 ml 825 ml Output Total 600 ml 1150 ml Balance 550 ml -325 ml Intake IV Total 650 ml 825 ml Blood Product 500 ml Output Urine Total 600 ml 1150 ml # Voids 2 2 Laboratory Tests 01/07/18 10:20: White Blood Count 6.1, Red Blood Count 1.81L, Hemoglobin 5.6*L, Hematocrit 18.0L , Mean Corpuscular Volume 99, Mean Corpuscular Hemoglobin 31.1H, Mean Corpuscular Hemoglobin Concent 31.4L, Red Cell Distribution Width 12.6, Platelet Count 245, Mean Platelet Volume 5.8L, Neutrophils (%) (Auto) , Lymphocytes (%) (Auto) , Monocytes (%) (Auto) , Eosinophils (%) (Auto) , Basophils (%) (Auto) , Differential Total Cells Counted 100, Neutrophils % ( Manual) 64, Lymphocytes % (Manual) 22, Monocytes % (Manual) 12H, Eosinophils % ( Manual) 1, Basophils % (Manual) 1, Band Neutrophils 0, Platelet Estimate Adequate, Platelet Morphology Normal, Polychromasia 2+, Hypochromasia 4+, Anisocytosis 1+, Reticulocyte Count 2.1H, Prothrombin Time 12.1H, Prothromb Time International Ratio 1.2H, Sodium Level 143, Potassium Level 4.9, Chloride Level 109H, Carbon Dioxide Level 21, Anion Gap 13, Blood Urea Nitrogen 44H, Creatinine 1.1, Estimat Glomerular Filtration Rate > 60, Glucose Level 305H, Calcium Level 7.7L, Iron Level 73, Total Iron Binding Capacity 353, Percent Iron Saturation 21, Unsaturated Iron Binding 280, Total Bilirubin 0.4, Aspartate Amino Transf (AST/SGOT) 10L, Alanine Aminotransferase (ALT/SGPT) 19, Alkaline Phosphatase 47, Total Creatine Kinase 93, Creatine Kinase MB 0.6, Creatine Kinase MB Relative Index 0.6, Troponin I 0.000, Total Protein 5.7L, Albumin 2.7L, Globulin 3.0, Albumin/Globulin Ratio 0.9L, Lipase 159, Vitamin B12 Level 519, Folate 13.5, Serum Alcohol < 3 01/07/18 12:20: Urine Color Pale yellow, Urine Appearance Clear, Urine pH 6, Urine Specific [place] 1.015, Urine Protein Negative, Urine Glucose (UA) 4+H, Urine Ketones 1+H , Urine Blood Negative, Urine Nitrite Negative, Urine Bilirubin Negative, Urine Urobilinogen Normal, Urine Leukocyte Esterase Negative, Urine Opiates Screen Negative, Urine Barbiturates Screen Negative, Phencyclidine (PCP) Screen Negative, Urine Amphetamines Screen Negative, Urine Benzodiazepines Screen Negative, Urine Cocaine Screen Negative, Urine Marijuana (THC) Screen Negative 01/07/18 19:05: White Blood Count 9.4#, Red Blood Count 2.70L, Hemoglobin 8.5#L, Hematocrit 25.2 #L, Mean Corpuscular Volume 93, Mean Corpuscular Hemoglobin 31.3H, Mean Corpuscular Hemoglobin Concent 33.6, Red Cell Distribution Width 14.0, Platelet Count 205, Mean Platelet Volume 4.8L, Neutrophils (%) (Auto) 71.6, Lymphocytes ( %) (Auto) 19.2L, Monocytes (%) (Auto) 8.5, Eosinophils (%) (Auto) 0.2, Basophils (%) (Auto) 0.4 01/08/18 01:00: White Blood Count 8.2, Red Blood Count 2.54L, Hemoglobin 7.9L, Hematocrit 23.3L , Mean Corpuscular Volume 92, Mean Corpuscular Hemoglobin 31.0, Mean Corpuscular Hemoglobin Concent 33.9, Red Cell Distribution Width 13.9, Platelet Count 194, Mean Platelet Volume 5.9L, Neutrophils (%) (Auto) , Lymphocytes (%) ( Auto) , Monocytes (%) (Auto) , Eosinophils (%) (Auto) , Basophils (%) (Auto) 01/08/18 04:30: Prothrombin Time 11.1, Prothromb Time International Ratio 1.1, Activated Partial Thromboplast Time 23, Sodium Level 145, Potassium Level 3.8, Chloride Level 111H, Carbon Dioxide Level 25, Anion Gap 9, Blood Urea Nitrogen 25H, Creatinine 0.9, Estimat Glomerular Filtration Rate > 60, Glucose Level 140H, Hemoglobin A1c 6.2H, Calcium Level 7.6L, Phosphorus Level 2.3L, Magnesium Level 1.5L, Total Bilirubin 0.8, Direct Bilirubin 0.2, Aspartate Amino Transf (AST/ SGOT) 11L, Alanine Aminotransferase (ALT/SGPT) 19, Alkaline Phosphatase 47, Troponin I 0.005, Pro-B-Type Natriuretic Peptide 199H, Total Protein 5.7L, Albumin 2.8L, Globulin 2.9, Albumin/Globulin Ratio 1.0, Triglycerides Level 143 , Cholesterol Level 104, LDL Cholesterol 55, HDL Cholesterol 32L, Cholesterol/ HDL Ratio 3.3 01/08/18 06:10: White Blood Count 6.9, Red Blood Count 2.66L, Hemoglobin 8.3L, Hematocrit 24.1L , Mean Corpuscular Volume 91, Mean Corpuscular Hemoglobin 31.2H, Mean Corpuscular Hemoglobin Concent 34.4, Red Cell Distribution Width 14.1, Platelet Count 202, Mean Platelet Volume 5.7L, Neutrophils (%) (Auto) 69.0, Lymphocytes ( %) (Auto) 20.3, Monocytes (%) (Auto) 8.9, Eosinophils (%) (Auto) 1.5, Basophils (%) (Auto) 0.4 Height (Feet): 5 Height (Inches): 7.00 Weight (Pounds): 168 General Appearance: WD/WN, no apparent distress, alert EENT: PERRL/EOMI, normal ENT inspection, TMs normal Neck: non-tender, normal alignment, supple, normal inspection Cardiovascular: normal peripheral pulses, normal rate, regular rhythm, regularly irregular, no gallop/murmur, no JVD Respiratory/Chest: chest wall non-tender, lungs clear, normal breath sounds, no respiratory distress, no accessory muscle use Abdomen: normal bowel sounds, non tender, soft, no organomegaly, no mass, abnormal bowel sounds Extremities: normal range of motion, non-tender, normal inspection Edema: no edema noted Arm (L), no edema noted Arm (R), no edema noted Leg (L), no edema noted Leg (R), no edema noted Pedal (L), no edema noted Pedal (R), no edema noted Generalized Neurologic: nurse chemical dependency II-XII grossly normal, no motor/sensory deficits, oriented x 3 , normal mood/affect Skin: normal pigmentation, warm/dry Lindsey Granda DO Jan 08, 2018 10:10
[2018-01-08] MEDS ORDERED: Propofol 200mg/20ml IV ONE (11:00)
[2018-01-08] MEDS ORDERED: Lidocaine 1% MPF 10mg/ml 5ml ONE (11:00)
--- NOTE | 2018-01-08 11:28 | Anethesia Preoperative Eval ---
Anesthesia Pre-op PMH/ROS General Date of Evaluation: Jan 08, 2018 Time of Evaluation: 11:24 Anesthesiologist: didier ASA Score: ASA 4 Mallampati Score Class I : Soft palate, uvula, fauces, pillars visible Class II: Soft palate, uvula, fauces visible Class III: Soft palate, base of uvula visible Class IV: Only hard plate visible Mallampati Classification: Class II Surgeon: jg Diagnosis: gi bleed Surgical Procedure: egd possible banding Anesthesia History: none Social History: smoking - former smoker Family History: no anesthesia problems Allergies: Coded Allergies: No Known Allergies (Unverified , 01/07/18) Medications: see eMAR Patient NPO?: Yes Past Medical History Cardiovascular: Reports: HTN Neurologic/Psychiatric: Reports: other - closed hesd injury Endocrine: Reports: DM Anesthesia Pre-op Phys. Exam Physician Exam Last Vital Signs Date Time Temp Pulse Resp B/P (MAP) Pulse Ox O2 Delivery O2 Flow Rate FiO2 01/08/18 09:00 68 14 127/60 (82) 96 01/08/18 08:00 Room Air 01/08/18 08:00 99.0 Constitutional: NAD Neurologic: CN 2-12 intact Cardiovascular: RRR Respiratory: CTA Gastrointestinal: S/NT/ND Airway Exam Mallampati Score: Class II MO: limited Neck: flexible TMD: 2fb ROM: limited Anesthesia Pre-op A/P Labs Hematology Test 01/07/18 19:05 01/08/18 01:00 01/08/18 06:10 White Blood Count 9.4 K/UL (4.8-10.8) # 8.2 K/UL (4.8-10.8) 6.9 K/UL (4.8-10.8) Red Blood Count 2.70 M/UL (4.70-6.10) L 2.54 M/UL (4.70-6.10) L 2.66 M/UL (4.70-6.10) L Hemoglobin 8.5 G/DL (14.2-18.0) #L 7.9 G/DL (14.2-18.0) L 8.3 G/DL (14.2-18.0) L Hematocrit 25.2 % (42.0-52.0) #L 23.3 % (42.0-52.0) L 24.1 % (42.0-52.0) L Mean Corpuscular Volume 93 FL (80-99) 92 FL (80-99) 91 FL (80-99) Mean Corpuscular Hemoglobin 31.3 PG (27.0-31.0) H 31.0 PG (27.0-31.0) 31.2 PG (27.0-31.0) H Mean Corpuscular Hemoglobin Concent 33.6 G/DL (32.0-36.0) 33.9 G/DL (32.0-36.0) 34.4 G/DL (32.0-36.0) Red Cell Distribution Width 14.0 % (11.6-14.8) 13.9 % (11.6-14.8) 14.1 % (11.6-14.8) Platelet Count 205 K/UL (150-450) 194 K/UL (150-450) 202 K/UL (150-450) Mean Platelet Volume 4.8 FL (6.5-10.1) L 5.9 FL (6.5-10.1) L 5.7 FL (6.5-10.1) L Neutrophils (%) (Auto) 71.6 % (45.0-75.0) % (45.0-75.0) 69.0 % (45.0-75.0) Lymphocytes (%) (Auto) 19.2 % (20.0-45.0) L % (20.0-45.0) 20.3 % (20.0-45.0) Monocytes (%) (Auto) 8.5 % (1.0-10.0) % (1.0-10.0) 8.9 % (1.0-10.0) Eosinophils (%) (Auto) 0.2 % (0.0-3.0) % (0.0-3.0) 1.5 % (0.0-3.0) Basophils (%) (Auto) 0.4 % (0.0-2.0) % (0.0-2.0) 0.4 % (0.0-2.0) Coagulation Test 01/08/18 04:30 Prothrombin Time 11.1 SEC (9.30-11.50) Prothromb Time International Ratio 1.1 (0.9-1.1) Activated Partial Thromboplast Time 23 SEC (23-33) Chemistry Test 01/08/18 04:30 Sodium Level 145 MMOL/L (136-145) Potassium Level 3.8 MMOL/L (3.5-5.1) Chloride Level 111 MMOL/L (98-107) H Carbon Dioxide Level 25 MMOL/L (21-32) Anion Gap 9 mmol/L (5-15) Blood Urea Nitrogen 25 mg/dL (7-18) H Creatinine 0.9 MG/DL (0.55-1.30) Estimat Glomerular Filtration Rate > 60 mL/min (>60) Glucose Level 140 MG/DL (74-106) H Hemoglobin A1c 6.2 % (4.3-6.0) H Calcium Level 7.6 MG/DL (8.5-10.1) L Phosphorus Level 2.3 MG/DL (2.5-4.9) L Magnesium Level 1.5 MG/DL (1.8-2.4) L Total Bilirubin 0.8 MG/DL (0.2-1.0) Direct Bilirubin 0.2 MG/DL (0.0-0.3) Aspartate Amino Transf (AST/SGOT) 11 U/L (15-37) L Alanine Aminotransferase (ALT/SGPT) 19 U/L (12-78) Alkaline Phosphatase 47 U/L (46-116) Troponin I 0.005 ng/mL (0.000-0.056) Pro-B-Type Natriuretic Peptide 199 pg/mL (0-125) H Total Protein 5.7 G/DL (6.4-8.2) L Albumin 2.8 G/DL (3.4-5.0) L Globulin 2.9 g/dL Albumin/Globulin Ratio 1.0 (1.0-2.7) Triglycerides Level 143 MG/DL (30-150) Cholesterol Level 104 MG/DL (< 200) LDL Cholesterol 55 mg/dL (<100) HDL Cholesterol 32 MG/DL (40-60) L Cholesterol/HDL Ratio 3.3 (3.3-4.4) Risk Assessment & Plan Assessment: [email or web address] Plan: mac Status Change Before Surgery: No Pre-Antibiotics Drug: Amaya León MD Jan 08, 2018 11:28
[2018-01-08] MEDS ORDERED: DiphenhydrAMINE 50mg/ml Inj IVP PRN ×2 (11:30→12:45)
[2018-01-08] MEDS ORDERED: Midazolam 2mg/2ml Inj IVP PRN ×2 (11:30→12:45)
[2018-01-08] MEDS ORDERED: NS 500ML IVPB ONE (11:30)
[2018-01-08] MEDS ORDERED: fentaNYL 100 mcg/2 mL IV PRN ×2 (11:30→12:45)
[2018-01-08] MEDS ORDERED: Atropine Sulfate 0.4mg/ml inj IVP PRN (11:30)
--- NOTE | 2018-01-08 11:31 | General Progress Note ---
Subjective Allergies: Coded Allergies: No Known Allergies (Unverified , 01/07/18) Objective Last 24 Hour Vital Signs Date Time Temp Pulse Resp B/P (MAP) Pulse Ox O2 Delivery O2 Flow Rate FiO2 01/08/18 09:00 68 14 127/60 (82) 96 01/08/18 08:00 65 01/08/18 08:00 Room Air 01/08/18 08:00 99.0 68 13 131/62 (85) 96 01/08/18 07:00 70 15 112/58 (76) 92 01/08/18 06:00 71 14 123/63 (83) 96 01/08/18 05:00 70 14 119/96 (104) 99 01/08/18 04:00 72 01/08/18 04:00 60 15 96/61 (73) 99 01/08/18 04:00 Room Air 01/08/18 03:00 61 15 110/64 (79) 97 01/08/18 02:00 67 16 110/64 (79) 96 01/08/18 01:00 73 16 110/64 (79) 99 01/08/18 00:00 97.9 75 17 131/62 (85) 97 01/08/18 00:00 Room Air 01/08/18 00:00 76 01/07/18 23:00 76 16 136/57 (83) 97 01/07/18 22:00 78 20 118/63 (81) 97 01/07/18 21:00 76 20 146/59 (88) 97 01/07/18 20:38 79 128/71 01/07/18 20:00 98.0 76 20 131/68 (89) 98 01/07/18 20:00 78 01/07/18 20:00 Room Air 01/07/18 16:03 Room Air 01/07/18 16:00 77 01/07/18 16:00 Room Air 01/07/18 15:31 Room Air 01/07/18 15:10 97.1 86 20 125/64 100 Room Air 01/07/18 14:55 97.1 86 20 125/64 100 Room Air 01/07/18 14:50 98.6 85 15 131/58 100 Room Air 01/07/18 14:45 98.4 87 13 136/55 99 Room Air 01/07/18 14:40 98.1 84 20 136/64 100 Room Air 01/07/18 14:00 97.8 87 18 120/65 100 Room Air 01/07/18 13:29 98.4 88 18 106/68 99 Room Air 01/07/18 12:45 97.9 82 17 115/61 100 Room Air 97.9 01/07/18 12:30 98.7 85 15 117/61 99 Room Air 98.7 01/07/18 12:15 98.9 88 20 105/81 99 Room Air 98.9 01/07/18 12:10 98.7 91 19 118/51 100 Room Air 98.7 01/07/18 12:05 97.9 83 13 125/54 100 Room Air 97.9 01/07/18 12:00 97.3 87 13 109/60 99 Room Air 97.3 01/07/18 12:00 97.3 87 13 01/07/18 11:35 98.6 83 13 136/62 99 Room Air 98.6 Intake and Output 01/07/18 01/08/18 19:00 07:00 Intake Total 1150 ml 825 ml Output Total 600 ml 1500 ml Balance 550 ml -675 ml Intake IV Total 650 ml 825 ml Blood Product 500 ml Output Urine Total 600 ml 1500 ml # Voids 2 3 Laboratory Tests 01/07/18 12:20: Urine Color Pale yellow, Urine Appearance Clear, Urine pH 6, Urine Specific [place] 1.015, Urine Protein Negative, Urine Glucose (UA) 4+H, Urine Ketones 1+H , Urine Blood Negative, Urine Nitrite Negative, Urine Bilirubin Negative, Urine Urobilinogen Normal, Urine Leukocyte Esterase Negative, Urine Opiates Screen Negative, Urine Barbiturates Screen Negative, Phencyclidine (PCP) Screen Negative, Urine Amphetamines Screen Negative, Urine Benzodiazepines Screen Negative, Urine Cocaine Screen Negative, Urine Marijuana (THC) Screen Negative 01/07/18 19:05: White Blood Count 9.4#, Red Blood Count 2.70L, Hemoglobin 8.5#L, Hematocrit 25.2 #L, Mean Corpuscular Volume 93, Mean Corpuscular Hemoglobin 31.3H, Mean Corpuscular Hemoglobin Concent 33.6, Red Cell Distribution Width 14.0, Platelet Count 205, Mean Platelet Volume 4.8L, Neutrophils (%) (Auto) 71.6, Lymphocytes ( %) (Auto) 19.2L, Monocytes (%) (Auto) 8.5, Eosinophils (%) (Auto) 0.2, Basophils (%) (Auto) 0.4 01/08/18 01:00: White Blood Count 8.2, Red Blood Count 2.54L, Hemoglobin 7.9L, Hematocrit 23.3L , Mean Corpuscular Volume 92, Mean Corpuscular Hemoglobin 31.0, Mean Corpuscular Hemoglobin Concent 33.9, Red Cell Distribution Width 13.9, Platelet Count 194, Mean Platelet Volume 5.9L, Neutrophils (%) (Auto) , Lymphocytes (%) ( Auto) , Monocytes (%) (Auto) , Eosinophils (%) (Auto) , Basophils (%) (Auto) 01/08/18 04:30: Prothrombin Time 11.1, Prothromb Time International Ratio 1.1, Activated Partial Thromboplast Time 23, Sodium Level 145, Potassium Level 3.8, Chloride Level 111H, Carbon Dioxide Level 25, Anion Gap 9, Blood Urea Nitrogen 25H, Creatinine 0.9, Estimat Glomerular Filtration Rate > 60, Glucose Level 140H, Hemoglobin A1c 6.2H, Calcium Level 7.6L, Phosphorus Level 2.3L, Magnesium Level 1.5L, Total Bilirubin 0.8, Direct Bilirubin 0.2, Aspartate Amino Transf (AST/ SGOT) 11L, Alanine Aminotransferase (ALT/SGPT) 19, Alkaline Phosphatase 47, Troponin I 0.005, Pro-B-Type Natriuretic Peptide 199H, Total Protein 5.7L, Albumin 2.8L, Globulin 2.9, Albumin/Globulin Ratio 1.0, Triglycerides Level 143 , Cholesterol Level 104, LDL Cholesterol 55, HDL Cholesterol 32L, Cholesterol/ HDL Ratio 3.3 01/08/18 06:10: White Blood Count 6.9, Red Blood Count 2.66L, Hemoglobin 8.3L, Hematocrit 24.1L , Mean Corpuscular Volume 91, Mean Corpuscular Hemoglobin 31.2H, Mean Corpuscular Hemoglobin Concent 34.4, Red Cell Distribution Width 14.1, Platelet Count 202, Mean Platelet Volume 5.7L, Neutrophils (%) (Auto) 69.0, Lymphocytes ( %) (Auto) 20.3, Monocytes (%) (Auto) 8.9, Eosinophils (%) (Auto) 1.5, Basophils (%) (Auto) 0.4 Height (Feet): 5 Height (Inches): 7.00 Weight (Pounds): 168 Andrew Pederson MD Jan 08, 2018 11:31
--- NOTE | 2018-01-08 11:32 | Pre-Procedure Note/Attestation ---
Pre-Procedure Note/Attestation Complete Prior to Procedure Planned Procedure: not applicable Procedure Narrative: EGD Indications for Procedure Pre-Operative Diagnosis: UGIB Attestation I attest that I discussed the nature of the procedure; its benefits; risks and complications; and alternatives (and the risks and benefits of such alternatives ), prior to the procedure, with the patient (or the patient's legal bilingual sales representative). I attest that, if there was a reasonable possibility of needing a blood transfusion, the patient (or the patient's legal bilingual sales representative) was given the [facility] standardized written summary, pursuant to the [place]b [place] Blood Safety Act ([place] Health and Safety Code # 1645, as amended). I attest that I re-evaluated the patient just prior to the surgery and that there has been no change in the patient's H&P, except as documented below: Andrew Pederson MD Jan 08, 2018 11:32
--- NOTE | 2018-01-08 12:43 | Immediate Post-Op Evaluation ---
Immediate Post-Op Evalulation Immediate Post-Op Evalulation Procedure: egd w/bx Date of Evaluation: Jan 08, 2018 Time of Evaluation: 11:47 IV Fluids: 150ml 0.9ns Blood Products: none Estimated Blood Loss: negligible Blood Pressure Systolic: 116 Blood Pressure Diastolic: 61 Pulse Rate: 72 Respiratory Rate: 18 O2 Sat by Pulse Oximetry: 100 Temperature (Fahrenheit): 99.0 Pain Score (1-10): 0 Nausea: No Vomiting: No Complications none Patient Status: awake, reacts, patent Hydration Status: adequate Drug: Amaya León MD Jan 08, 2018 12:43
[2018-01-08] MEDS ORDERED: Atropine Inj 1mg/10ml Syr IV PRN (12:45)
--- NOTE | 2018-01-08 12:45 | 48 Hour Post Anesthesia Eval ---
Post Anesthesia Evaluation Procedure: egd w/bx Date of Evaluation: Jan 08, 2018 Time of Evaluation: 11:49 Blood Pressure Systolic: 113 0: 65 Pulse Rate: 72 Respiratory Rate: 18 Temperature (Fahrenheit): 99.0 O2 Sat by Pulse Oximetry: 100 Airway: patent Nausea: No Vomiting: No Pain Intensity: 0 Hydration Status: adequate Cardiopulmonary Status: stable Mental Status/LOC: patient returned to baseline Post-Anesthesia Complications: none Follow-up care needed: N/A Amaya Chew MD Jan 08, 2018 12:45
--- NOTE | 2018-01-08 12:52 | General Progress Note ---
Assessment/Plan Assessment/Plan Assessment - Alcohol abuse - UGIB - Anemia - DM - CHF - abnormal electrolytes (MG, Phos) , likely EtOH related Recommendations - NPO - IVF - replace and follow electrolytes - EGD today - Sandostatin POST ENDOSCOPY - No varicies - One cm gastric antrum ulcer - biopsied - One cm duodenal ulcer - no active bleeding or other lesion - Begin clears / advance - d/c sandostatin Subjective Allergies: Coded Allergies: No Known Allergies (Unverified , 01/07/18) Subjective Above noted Calm no abd pain d/w family re EGD Objective Last 24 Hour Vital Signs Date Time Temp Pulse Resp B/P (MAP) Pulse Ox O2 Delivery O2 Flow Rate FiO2 01/08/18 12:43 72 18 100 01/08/18 12:00 Room Air 01/08/18 12:00 99.0 65 16 102/76 (85) 98 01/08/18 11:00 65 14 131/63 (85) 98 01/08/18 10:00 66 13 120/58 (78) 97 01/08/18 09:00 68 14 127/60 (82) 96 01/08/18 08:00 65 01/08/18 08:00 Room Air 01/08/18 08:00 99.0 68 13 131/62 (85) 96 01/08/18 07:00 70 15 112/58 (76) 92 01/08/18 06:00 71 14 123/63 (83) 96 01/08/18 05:00 70 14 119/96 (104) 99 01/08/18 04:00 72 01/08/18 04:00 60 15 96/61 (73) 99 01/08/18 04:00 Room Air 01/08/18 03:00 61 15 110/64 (79) 97 01/08/18 02:00 67 16 110/64 (79) 96 01/08/18 01:00 73 16 110/64 (79) 99 01/08/18 00:00 97.9 75 17 131/62 (85) 97 01/08/18 00:00 Room Air 01/08/18 00:00 76 01/07/18 23:00 76 16 136/57 (83) 97 01/07/18 22:00 78 20 118/63 (81) 97 01/07/18 21:00 76 20 146/59 (88) 97 10/24/18 20:38 79 128/71 01/07/18 20:00 98.0 76 20 131/68 (89) 98 01/07/18 20:00 78 01/07/18 20:00 Room Air 01/07/18 16:03 Room Air 01/07/18 16:00 77 01/07/18 16:00 Room Air 01/07/18 15:31 Room Air 01/07/18 15:10 97.1 86 20 125/64 100 Room Air 01/07/18 14:55 97.1 86 20 125/64 100 Room Air 01/07/18 14:50 98.6 85 15 131/58 100 Room Air 01/07/18 14:45 98.4 87 13 136/55 99 Room Air 01/07/18 14:40 98.1 84 20 136/64 100 Room Air 01/07/18 14:00 97.8 87 18 120/65 100 Room Air 01/07/18 13:29 98.4 88 18 106/68 99 Room Air Intake and Output 01/07/18 01/08/18 19:00 07:00 Intake Total 1150 ml 825 ml Output Total 600 ml 1500 ml Balance 550 ml -675 ml Intake IV Total 650 ml 825 ml Blood Product 500 ml Output Urine Total 600 ml 1500 ml # Voids 2 3 Laboratory Tests 01/07/18 19:05: White Blood Count 9.4#, Red Blood Count 2.70L, Hemoglobin 8.5#L, Hematocrit 25.2 #L, Mean Corpuscular Volume 93, Mean Corpuscular Hemoglobin 31.3H, Mean Corpuscular Hemoglobin Concent 33.6, Red Cell Distribution Width 14.0, Platelet Count 205, Mean Platelet Volume 4.8L, Neutrophils (%) (Auto) 71.6, Lymphocytes ( %) (Auto) 19.2L, Monocytes (%) (Auto) 8.5, Eosinophils (%) (Auto) 0.2, Basophils (%) (Auto) 0.4 01/08/18 01:00: White Blood Count 8.2, Red Blood Count 2.54L, Hemoglobin 7.9L, Hematocrit 23.3L , Mean Corpuscular Volume 92, Mean Corpuscular Hemoglobin 31.0, Mean Corpuscular Hemoglobin Concent 33.9, Red Cell Distribution Width 13.9, Platelet Count 194, Mean Platelet Volume 5.9L, Neutrophils (%) (Auto) , Lymphocytes (%) ( Auto) , Monocytes (%) (Auto) , Eosinophils (%) (Auto) , Basophils (%) (Auto) 01/08/18 04:30: Prothrombin Time 11.1, Prothromb Time International Ratio 1.1, Activated Partial Thromboplast Time 23, Sodium Level 145, Potassium Level 3.8, Chloride Level 111H, Carbon Dioxide Level 25, Anion Gap 9, Blood Urea Nitrogen 25H, Creatinine 0.9, Estimat Glomerular Filtration Rate > 60, Glucose Level 140H, Hemoglobin A1c 6.2H, Calcium Level 7.6L, Phosphorus Level 2.3L, Magnesium Level 1.5L, Total Bilirubin 0.8, Direct Bilirubin 0.2, Aspartate Amino Transf (AST/ SGOT) 11L, Alanine Aminotransferase (ALT/SGPT) 19, Alkaline Phosphatase 47, Troponin I 0.005, Pro-B-Type Natriuretic Peptide 199H, Total Protein 5.7L, Albumin 2.8L, Globulin 2.9, Albumin/Globulin Ratio 1.0, Triglycerides Level 143 , Cholesterol Level 104, LDL Cholesterol 55, HDL Cholesterol 32L, Cholesterol/ HDL Ratio 3.3 01/08/18 06:10: White Blood Count 6.9, Red Blood Count 2.66L, Hemoglobin 8.3L, Hematocrit 24.1L , Mean Corpuscular Volume 91, Mean Corpuscular Hemoglobin 31.2H, Mean Corpuscular Hemoglobin Concent 34.4, Red Cell Distribution Width 14.1, Platelet Count 202, Mean Platelet Volume 5.7L, Neutrophils (%) (Auto) 69.0, Lymphocytes ( %) (Auto) 20.3, Monocytes (%) (Auto) 8.9, Eosinophils (%) (Auto) 1.5, Basophils (%) (Auto) 0.4 Height (Feet): 5 Height (Inches): 7.00 Weight (Pounds): 168 Objective WDWN NCAT supple CTA RRR Abd soft NT ND no edema no tremor Andrew Pederson MD Jan 08, 2018 12:52
--- NOTE | 2018-01-08 12:54 | Brief Operative Note ---
Immediate Post Operative Note Operative Note Chief Complaint: UGIB Pre-op Diagnosis: UGIB Procedure: EGD/bx Post-op Diagnosis: - No varicies - One cm gastric antrum ulcer - biopsied - One cm duodenal ulcer - no active bleeding or other lesion - Begin clears / advance - d/c sandostatin Surgeon: jg Anesthesiologist: Terrence tate Anesthesia: MAC Specimen: yes Complications: none Condition: stable Fluids: administered Estimated Blood Loss: none Drains: none Implant(s) used?: No Andrew Pederson MD Jan 08, 2018 12:54
[2018-01-08 13:20] LABS: BASOPHILS % (AUTO) 0.6 % (0.0-2.0); EOSINOPHILS % (AUTO) 1.8 % (0.0-3.0); HEMATOCRIT 25.6 % (42.0-52.0); HEMOGLOBIN 8.5 G/DL (14.2-18.0); LYMPHOCYTES % (AUTO) 26.9 % (20.0-45.0); MEAN CORPUSCULAR VOLUME 92 FL (80-99); MONOCYTES % (AUTO) 8.5 % (1.0-10.0); NEUTROPHILS % (AUTO) 62.1 % (45.0-75.0); PLATELET COUNT 225 K/UL (150-450); RED BLOOD COUNT 2.78 M/UL (4.70-6.10); RED CELL DISTRIBUTION WIDTH 13.6 % (11.6-14.8); WHITE BLOOD COUNT 6.1 K/UL (4.8-10.8)
--- NOTE | 2018-01-08 13:38 | Pulmonolgy Critical Care Note ---
Critical Care - Asmt/Plan Problems: (1) Hypertension (2) Diabetes (3) Alcohol abuse (4) Gastrointestinal hemorrhage (5) Syncope Assessment/Plan: -F/U GI recs, continue PPI, monitor HH, transfuse as needed -CLD per GI, ADAT -mIVF, replete Mg and Phos -MVI/thiamine/Folate -Monitor for Sx's of EtOH w/drawal -Psych eval -F/U SW recs -F/U cards and GI recs -F/U TTE -DVT Px: SCD's -FC 35 min CCT - Critical Care - Objective Last 24 Hour Vital Signs Date Time Temp Pulse Resp B/P (MAP) Pulse Ox O2 Delivery O2 Flow Rate FiO2 01/08/18 12:45 72 18 100 01/08/18 12:43 72 18 100 01/08/18 12:00 67 01/08/18 12:00 Room Air 01/08/18 12:00 99.0 65 16 102/76 (85) 98 01/08/18 11:00 65 14 131/63 (85) 98 01/08/18 10:00 66 13 120/58 (78) 97 01/08/18 09:00 68 14 127/60 (82) 96 01/08/18 08:00 65 01/08/18 08:00 Room Air 01/08/18 08:00 99.0 68 13 131/62 (85) 96 01/08/18 07:00 70 15 112/58 (76) 92 01/08/18 06:00 71 14 123/63 (83) 96 01/08/18 05:00 70 14 119/96 (104) 99 01/08/18 04:00 72 01/08/18 04:00 60 15 96/61 (73) 99 01/08/18 04:00 Room Air 01/08/18 03:00 61 15 110/64 (79) 97 01/08/18 02:00 67 16 110/64 (79) 96 01/08/18 01:00 73 16 110/64 (79) 99 01/08/18 00:00 97.9 75 17 131/62 (85) 97 01/08/18 00:00 Room Air 01/08/18 00:00 76 01/07/18 23:00 76 16 136/57 (83) 97 01/07/18 22:00 78 20 118/63 (81) 97 01/07/18 21:00 76 20 146/59 (88) 97 01/07/18 20:38 79 128/71 01/07/18 20:00 98.0 76 20 131/68 (89) 98 01/07/18 20:00 78 01/07/18 20:00 Room Air 01/07/18 16:03 Room Air 01/07/18 16:00 77 01/07/18 16:00 Room Air 01/07/18 15:31 Room Air 01/07/18 15:10 97.1 86 20 125/64 100 Room Air 01/07/18 14:55 97.1 86 20 125/64 100 Room Air 01/07/18 14:50 98.6 85 15 131/58 100 Room Air 01/07/18 14:45 98.4 87 13 136/55 99 Room Air 01/07/18 14:40 98.1 84 20 136/64 100 Room Air 01/07/18 14:00 97.8 87 18 120/65 100 Room Air Status: awake Condition: improving HEENT: atraumatic, normocephalic Neck: full ROM Lungs: clear Heart: HR/BP stable Abdomen: soft, non-tender, active bowel sounds Extremities: no C/C/E Accucheck: 185 Critical Care - Subjective ROS Limited/Unobtainable: Yes ICU Day: 2 Intubation Day: NA Interval Events: AFVSS, HH stable S/P EGD, no EV + No F/C/CP/SOB/N/V/D/C/abd pain Condition: improving IV Access: peripheral EKG Rhythm: Sinus Rhythm Fluids: NS Drips: Octreotide & Sandostatin I&O: Intake and Output 01/07/18 01/08/18 19:00 07:00 Intake Total 1150 ml 825 ml Output Total 600 ml 1500 ml Balance 550 ml -675 ml Intake IV Total 650 ml 825 ml Blood Product 500 ml Output Urine Total 600 ml 1500 ml # Voids 2 3 Subjective: As above CXR: NAD Labs: Laboratory Tests Test 01/07/18 19:05 01/08/18 01:00 01/08/18 04:30 01/08/18 06:10 White Blood Count 9.4 K/UL (4.8-10.8) # 8.2 K/UL (4.8-10.8) 6.9 K/UL (4.8-10.8) Red Blood Count 2.70 M/UL (4.70-6.10) L 2.54 M/UL (4.70-6.10) L 2.66 M/UL (4.70-6.10) L Hemoglobin 8.5 G/DL (14.2-18.0) #L 7.9 G/DL (14.2-18.0) L 8.3 G/DL (14.2-18.0) L Hematocrit 25.2 % (42.0-52.0) #L 23.3 % (42.0-52.0) L 24.1 % (42.0-52.0) L Mean Corpuscular Volume 93 FL (80-99) 92 FL (80-99) 91 FL (80-99) Mean Corpuscular Hemoglobin 31.3 PG (27.0-31.0) H 31.0 PG (27.0-31.0) 31.2 PG (27.0-31.0) H Mean Corpuscular Hemoglobin Concent 33.6 G/DL (32.0-36.0) 33.9 G/DL (32.0-36.0) 34.4 G/DL (32.0-36.0) Red Cell Distribution Width 14.0 % (11.6-14.8) 13.9 % (11.6-14.8) 14.1 % (11.6-14.8) Platelet Count 205 K/UL (150-450) 194 K/UL (150-450) 202 K/UL (150-450) Mean Platelet Volume 4.8 FL (6.5-10.1) L 5.9 FL (6.5-10.1) L 5.7 FL (6.5-10.1) L Neutrophils (%) (Auto) 71.6 % (45.0-75.0) % (45.0-75.0) 69.0 % (45.0-75.0) Lymphocytes (%) (Auto) 19.2 % (20.0-45.0) L % (20.0-45.0) 20.3 % (20.0-45.0) Monocytes (%) (Auto) 8.5 % (1.0-10.0) % (1.0-10.0) 8.9 % (1.0-10.0) Eosinophils (%) (Auto) 0.2 % (0.0-3.0) % (0.0-3.0) 1.5 % (0.0-3.0) Basophils (%) (Auto) 0.4 % (0.0-2.0) % (0.0-2.0) 0.4 % (0.0-2.0) Prothrombin Time 11.1 SEC (9.30-11.50) Prothromb Time International Ratio 1.1 (0.9-1.1) Activated Partial Thromboplast Time 23 SEC (23-33) Sodium Level 145 MMOL/L (136-145) Potassium Level 3.8 MMOL/L (3.5-5.1) Chloride Level 111 MMOL/L (98-107) H Carbon Dioxide Level 25 MMOL/L (21-32) Anion Gap 9 mmol/L (5-15) Blood Urea Nitrogen 25 mg/dL (7-18) H Creatinine 0.9 MG/DL (0.55-1.30) Estimat Glomerular Filtration Rate > 60 mL/min (>60) Glucose Level 140 MG/DL (74-106) H Hemoglobin A1c 6.2 % (4.3-6.0) H Calcium Level 7.6 MG/DL (8.5-10.1) L Phosphorus Level 2.3 MG/DL (2.5-4.9) L Magnesium Level 1.5 MG/DL (1.8-2.4) L Total Bilirubin 0.8 MG/DL (0.2-1.0) Direct Bilirubin 0.2 MG/DL (0.0-0.3) Aspartate Amino Transf (AST/SGOT) 11 U/L (15-37) L Alanine Aminotransferase (ALT/SGPT) 19 U/L (12-78) Alkaline Phosphatase 47 U/L (46-116) Troponin I 0.005 ng/mL (0.000-0.056) Pro-B-Type Natriuretic Peptide 199 pg/mL (0-125) H Total Protein 5.7 G/DL (6.4-8.2) L Albumin 2.8 G/DL (3.4-5.0) L Globulin 2.9 g/dL Albumin/Globulin Ratio 1.0 (1.0-2.7) Triglycerides Level 143 MG/DL (30-150) Cholesterol Level 104 MG/DL (< 200) LDL Cholesterol 55 mg/dL (<100) HDL Cholesterol 32 MG/DL (40-60) L Cholesterol/HDL Ratio 3.3 (3.3-4.4) Test 01/08/18 12:45 White Blood Count 6.1 K/UL (4.8-10.8) Red Blood Count 2.78 M/UL (4.70-6.10) L Hemoglobin 8.5 G/DL (14.2-18.0) L Hematocrit 25.6 % (42.0-52.0) L Mean Corpuscular Volume 92 FL (80-99) Mean Corpuscular Hemoglobin 30.7 PG (27.0-31.0) Mean Corpuscular Hemoglobin Concent 33.3 G/DL (32.0-36.0) Red Cell Distribution Width 13.6 % (11.6-14.8) Platelet Count 225 K/UL (150-450) Mean Platelet Volume 6.0 FL (6.5-10.1) L Neutrophils (%) (Auto) 62.1 % (45.0-75.0) Lymphocytes (%) (Auto) 26.9 % (20.0-45.0) Monocytes (%) (Auto) 8.5 % (1.0-10.0) Eosinophils (%) (Auto) 1.8 % (0.0-3.0) Basophils (%) (Auto) 0.6 % (0.0-2.0) Zacarias Fitzgerald MD Jan 08, 2018 13:38
--- NOTE | 2018-01-08 13:51 | Discharge Summary ---
Discharge Summary Hospital Course Date of Admission Jan 07, 2018 at 11:46 Date of Discharge 01/09/18 Admitting Diagnosis Acute GI bleeding HPI Kingston Salinas is a 67 year old male who was admitted on Jan 07, 2018 at 11 :46 for Acute Gastrointestinal Bleed Consultations ICU: Dr Fitzgerald Cardiology: Dr. Lindsey GI: Dr. Pickard and Khorrami Procedures EGD Hospital Course 67 yo M PMH Etoh abuse ( one bottle per day for 5 years), HTN, CHF?, DM, presented for two episodes of hematemesis and feeling light headed. Upon arrival patient was found to have hgb of 5.6 and admitted to ICU for monitoring with transfusion of 2 Units PRBC, along with octreotide and protonix drip. Patient hgb responded to >8 s/p transfusions with no more hematemesis. Patient remained EGD was done on 01/08/18 showing duodenal bulb ulcer and gastric antrum ulcer with no active bleeding. Ulcers was biopsied and sent to pathology. Afterward patient remained stable and was sent to [facility] on clear liquid diet to advance as tolerated. Hgb on day of discharge is > 8 and stable. Patient has been tolerating diet with no nausea, abd pain, or vomiting. I have spoke to son Trae ([phone]) regarding patient's hospital stay and follow up instructions. I have also counseled patient on Etoh cessation. Patient FULL CODE Per patients pharmacy ([phone]) Home Meds: pioglitazone atorvastatin certraline finasteride glipizide metoprolol amlodipine januvia meloxicam gabapentin ibersartan metformin tamsulosin all meds are ok to continue on discharge with instructions as to no aspirin, no NSAIDs, and addition of Protonix 40 mg PO BID for 30 days with future follow up EGD. Follow up pathology for Hpylori. Discharge Condition Upon Discharge: stable Discharge Disposition Patient was discharged to home with son Discharge Diagnoses: (1) Ulcer, gastric, acute (2) Duodenal ulcer (3) CHF (congestive heart failure) (4) Diabetes (5) Hypertension Lindsey Granda DO Jan 08, 2018 13:51
--- NOTE | 2018-01-08 13:54 | Diagnostic Imaging Report ---
Indication:Abdominal pain Technique: Grayscale and duplex Doppler imaging of the abdomen performed. Comparison: None Findings: The liver is unremarkable. The gallbladder is noted. The demonstrated part of the pancreas, aorta and IVC show no abnormalities. Both kidneys appear unremarkable. The spleen is normal in size. There is no biliary ductal dilatation identified. Doppler evaluation of the main portal vein shows patency. There is no ascites. No hydronephrosis seen. Impression: No acute findings.
--- NOTE | 2018-01-08 13:58 | Consultation ---
Consult Note Consult Note HEMATOLOGY-ONCOLOGY PROGRESS NOTE REFERRING PHYSICIAN: Zacarias Fitzgerald MD DATE OF CONSULTATION: 01/08/2018 REASON FOR CONSULTATION: Anemia HPI: 67 yo M PMH Etoh abuse (one bottle per day for 5 years), HTN, CHF, DM, presented for two episodes of hematemesis and feeling light headed. Patient does not speak good [place] but son is at bedside as condominium association manager. Patient states he does not know how much blood he vomited and this has never happened to him before. He has never has an EGD in the past nor has a been told he has varices or liver cirrhosis. Patient denies pain, dizziness or LOC, or orthopnea. Patient admits to DAO. Hematology services consulted for the evaluation of anemia. Pt received 2 units PRBC in ER. Current Hgb at 8.5 Anemia w/u has been ordered. Medication History Scheduled Amlodipine Besylate* (Amlodipine Besylate*), 10 MG ORAL DAILY, (Reported) Aspirin* (Aspir 81*), 81 MG ORAL DAILY, (Reported) Atorvastatin Calcium* (Atorvastatin Calcium*), 40 MG ORAL BEDTIME, (Reported) Finasteride* (Proscar*), 5 MG ORAL DAILY, (Reported) Gabapentin* (Gabapentin*), 300 MG ORAL BEDTIME, (Reported) Glipizide* (Glipizide*), 10 MG ORAL BIDAC, (Reported) Irbesartan* (Avapro*), 300 MG ORAL DAILY, (Reported) Meloxicam* (Meloxicam*), 15 MG PO DAILY, (Reported) Metformin Hcl* (Metformin Hcl*), 1,000 MG ORAL TWICE A DAY, (Reported) Metoprolol Succinate* (Metoprolol Succinate*), 25 MG ORAL DAILY, (Reported) Pioglitazone Hcl* (Actos*), 15 MG ORAL DAILY, (Reported) Sertraline Hcl* (Sertraline Hcl*), 25 MG ORAL DAILY, (Reported) Sitagliptin* (Januvia*), 100 MG ORAL DAILY, (Reported) Tamsulosin Hcl (Tamsulosin Hcl*), 0.4 MG ORAL BEDTIME, (Reported) Travoprost (Travatan Z), 5 ML OP TWICE A DAY, (Reported) Patient History Limited by: language barrier History Provided By: Family Member - son Healthcare decision maker Resuscitation status Advanced Directive on File Past Medical/Surgical History Past Medical/Surgical History: (1) CHF (congestive heart failure) (2) Hypertension (3) Diabetes (4) Alcohol abuse Social History Social History: (1) Alcohol abuse Review of Systems All Other Systems: negative except mentioned in HPI ROS Narrative aside from HPI all other ROS are negative including more than 12 systems Physical Exam General Appearance: WD/WN, no apparent distress, alert Lines, tubes and drains: peripheral HEENT: normocephalic, atraumatic, anicteric, mucous membranes moist, PERRL Neck: non-tender, normal alignment, supple, normal inspection Respiratory/Chest: chest wall non-tender, lungs clear, normal breath sounds, no respiratory distress, no accessory muscle use Cardiovascular/Chest: normal peripheral pulses, normal rate, regular rhythm, regularly irregular, no gallop/murmur, no JVD Abdomen: normal bowel sounds, non tender, soft, no organomegaly, no mass, abnormal bowel sounds Extremities: normal range of motion, non-tender, normal inspection, normal capillary refill, non-pitting Skin Exam: normal pigmentation, cyanotic 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, no motor/sensory deficits, oriented x 3 , normal mood/affect Musculoskeletal: no effusion Last 24 Hour Vital Signs Date Time Temp Pulse Resp B/P (MAP) Pulse Ox O2 Delivery O2 Flow Rate FiO2 01/07/18 14:45 98.4 87 13 136/55 99 Room Air 01/07/18 14:40 98.1 84 20 136/64 100 Room Air 01/07/18 14:00 97.8 87 18 120/65 100 Room Air 01/07/18 13:29 98.4 88 18 106/68 99 Room Air 01/07/18 12:45 97.9 82 17 115/61 100 Room Air 97.9 01/07/18 12:30 98.7 85 15 117/61 99 Room Air 98.7 01/07/18 12:15 98.9 88 20 105/81 99 Room Air 98.9 01/07/18 12:10 98.7 91 19 118/51 100 Room Air 98.7 01/07/18 12:05 97.9 83 13 125/54 100 Room Air 97.9 01/07/18 12:00 97.3 87 13 109/60 99 Room Air 97.3 01/07/18 12:00 97.3 87 13 01/07/18 11:35 98.6 83 13 136/62 99 Room Air 98.6 01/07/18 11:09 85 13 Room Air 01/07/18 10:19 98.6 85 20 120/45 95 Room Air 98.6 01/07/18 10:08 82 16 111/61 98 Room Air Laboratory Tests Test 01/07/18 10:20 01/07/18 12:20 White Blood Count 6.1 K/UL (4.8-10.8) Red Blood Count 1.81 M/UL (4.70-6.10) L Hemoglobin 5.6 G/DL (14.2-18.0) *L Hematocrit 18.0 % (42.0-52.0) L Mean Corpuscular Volume 99 FL (80-99) Mean Corpuscular Hemoglobin 31.1 PG (27.0-31.0) H Mean Corpuscular Hemoglobin Concent 31.4 G/DL (32.0-36.0) L Red Cell Distribution Width 12.6 % (11.6-14.8) Platelet Count 245 K/UL (150-450) Mean Platelet Volume 5.8 FL (6.5-10.1) L Neutrophils (%) (Auto) % (45.0-75.0) Lymphocytes (%) (Auto) % (20.0-45.0) Monocytes (%) (Auto) % (1.0-10.0) Eosinophils (%) (Auto) % (0.0-3.0) Basophils (%) (Auto) % (0.0-2.0) Differential Total Cells Counted 100 Neutrophils % (Manual) 64 % (45-75) Lymphocytes % (Manual) 22 % (20-45) Monocytes % (Manual) 12 % (1-10) H Eosinophils % (Manual) 1 % (0-3) Basophils % (Manual) 1 % (0-2) Band Neutrophils 0 % (0-8) Platelet Estimate Adequate Platelet Morphology Normal Polychromasia 2+ Hypochromasia 4+ Anisocytosis 1+ Prothrombin Time 12.1 SEC (9.30-11.50) H Prothromb Time International Ratio 1.2 (0.9-1.1) H Sodium Level 143 MMOL/L (136-145) Potassium Level 4.9 MMOL/L (3.5-5.1) Chloride Level 109 MMOL/L (98-107) H Carbon Dioxide Level 21 MMOL/L (21-32) Anion Gap 13 mmol/L (5-15) Blood Urea Nitrogen 44 mg/dL (7-18) H Creatinine 1.1 MG/DL (0.55-1.30) Estimat Glomerular Filtration Rate > 60 mL/min (>60) Glucose Level 305 MG/DL (74-106) H Calcium Level 7.7 MG/DL (8.5-10.1) L Total Bilirubin 0.4 MG/DL (0.2-1.0) Aspartate Amino Transf (AST/SGOT) 10 U/L (15-37) L Alanine Aminotransferase (ALT/SGPT) 19 U/L (12-78) Alkaline Phosphatase 47 U/L (46-116) Total Creatine Kinase 93 U/L (26-308) Creatine Kinase MB 0.6 NG/ML (0.0-3.6) Creatine Kinase MB Relative Index 0.6 Troponin I 0.000 ng/mL (0.000-0.056) Total Protein 5.7 G/DL (6.4-8.2) L Albumin 2.7 G/DL (3.4-5.0) L Globulin 3.0 g/dL Albumin/Globulin Ratio 0.9 (1.0-2.7) L Lipase 159 U/L (73-393) Serum Alcohol < 3 mg/dL Urine Color Pale yellow Urine Appearance Clear Urine pH 6 (4.5-8.0) Urine Specific [place] 1.015 (1.005-1.035) Urine Protein Negative (NEGATIVE) Urine Glucose (UA) 4+ (NEGATIVE) H Urine Ketones 1+ (NEGATIVE) H Urine Blood Negative (NEGATIVE) Urine Nitrite Negative (NEGATIVE) Urine Bilirubin Negative (NEGATIVE) Urine Urobilinogen Normal MG/DL (0.0-1.0) Urine Leukocyte Esterase Negative (NEGATIVE) Urine Opiates Screen Negative (NEGATIVE) Urine Barbiturates Screen Negative (NEGATIVE) Phencyclidine (PCP) Screen Negative (NEGATIVE) Urine Amphetamines Screen Negative (NEGATIVE) Urine Benzodiazepines Screen Negative (NEGATIVE) Urine Cocaine Screen Negative (NEGATIVE) Urine Marijuana (THC) Screen Negative (NEGATIVE) Height (Feet): 5 Height (Inches): 7.00 Weight (Pounds): 150 Medications Current Medications Medications (Trade) Dose Ordered Sig/Jesusita Route PRN Reason Start Time Stop Time Status Last Admin Dose Admin Acetaminophen (Tylenol) 650 mg Q4H ORAL 01/07/18 14:15 02/06/18 14:14 Dextrose (Dextrose 50%) 25 ml Q30M PRN IV Hypoglycemia 01/07/18 14:15 02/06/18 14:14 Dextrose (Dextrose 50%) 50 ml Q30M PRN IV Hypoglycemia 01/07/18 14:15 02/06/18 14:14 Folic Acid (Folate) 1 mg DAILY ORAL 01/08/18 09:00 02/07/18 08:59 Lorazepam (Ativan) 2 mg Q4H PRN ORAL AGITATION 01/07/18 14:15 01/14/18 14:14 Octreotide Acetate 500 mcg/ Sodium Chloride 500 ml @ 50 mls/hr Q10H IV 01/07/18 20:00 02/06/18 19:59 Octreotide Acetate 500 mcg/ Sodium Chloride 500 ml @ 50 mls/hr Q10H ONCE IV 01/07/18 11:00 01/07/18 20:59 01/07/18 11:06 Ondansetron HCl (Zofran ODT) 4 mg Q6H PRN ORAL Nausea & Vomiting 01/07/18 14:15 02/06/18 14:14 Ondansetron HCl (Zofran) 4 mg Q6H PRN IVP Nausea & Vomiting 01/07/18 14:15 02/06/18 14:14 Pantoprazole 80 mg/Sodium Chloride 250 ml @ 25 mls/hr Q10H IV 01/07/18 15:30 02/06/18 15:29 Thiamine HCl (Vitamin B1) 100 mg ONCE ORAL 01/07/18 14:42 01/07/18 18:00 ASSESSMENT AND RECOMMENDATIONS # Anemia of chronic disease (or iron deficiency) due to underlying chronic medical issues, multifactorial --> Anemia w/u has been ordered. --> Hgb goal >7. Transfuse prn. --> No evidence of hemolysis is noted, peripheral smear has been reviewed. --> Blood tx: 01/07, # GI hemorrhage. GI is following. Appreciate recs. --> S/P EGD. --> protonix gtt and octreotide gtt --> no signs of ascites, does not require rocephin at this time # DM. Levemir, lispro and ISS # HTN. # CHF. Hold asa and heart meds in setting of bleed # Alcohol abuse. --> thiamine and folic acid --> ativan PRN for seizures --> monitor for withdrawal --> cessation education GREATLY APPRECIATE CONSULTATION. Molina Ramirez MD Jan 08, 2018 13:58
--- NOTE | 2018-01-08 14:35 | Cardiac Electrophysiology PN ---
Assessment/Plan Assessment/Plan 1. History of hypertension. On metoprolol 12.5 mg bid. echo EF 65% 2. Diabetes On insulin. 3. Acute GI bleed. EGD showed gastric and duodenal ulcers 4. Heavy alcohol use. 5. Syncope due to anemia and alcohol use. Transfer out of ICU Subjective Subjective Had EGD that showed Gastric and duodenal ulcers with no active bleeding. Still in ICU.No Varices Objective Last 24 Hour Vital Signs Date Time Temp Pulse Resp B/P (MAP) Pulse Ox O2 Delivery O2 Flow Rate FiO2 01/08/18 14:00 65 16 126/103 (111) 97 01/08/18 13:00 64 16 87/76 (80) 97 01/08/18 12:45 72 18 100 01/08/18 12:43 72 18 100 01/08/18 12:00 67 01/08/18 12:00 Room Air 01/08/18 12:00 99.0 65 16 102/76 (85) 98 01/08/18 11:00 65 14 131/63 (85) 98 01/08/18 10:00 66 13 120/58 (78) 97 01/08/18 09:00 68 14 127/60 (82) 96 01/08/18 08:00 65 01/08/18 08:00 Room Air 01/08/18 08:00 99.0 68 13 131/62 (85) 96 01/08/18 07:00 70 15 112/58 (76) 92 01/08/18 06:00 71 14 123/63 (83) 96 01/08/18 05:00 70 14 119/96 (104) 99 01/08/18 04:00 72 01/08/18 04:00 60 15 96/61 (73) 99 01/08/18 04:00 Room Air 01/08/18 03:00 61 15 110/64 (79) 97 01/08/18 02:00 67 16 110/64 (79) 96 01/08/18 01:00 73 16 110/64 (79) 99 01/08/18 00:00 97.9 75 17 131/62 (85) 97 01/08/18 00:00 Room Air 01/08/18 00:00 76 01/07/18 23:00 76 16 136/57 (83) 97 01/07/18 22:00 78 20 118/63 (81) 97 01/07/18 21:00 76 20 146/59 (88) 97 01/07/18 20:38 79 128/71 01/07/18 20:00 98.0 76 20 131/68 (89) 98 01/07/18 20:00 78 01/07/18 20:00 Room Air 01/07/18 16:03 Room Air 01/07/18 16:00 77 01/07/18 16:00 Room Air 01/07/18 15:31 Room Air 01/07/18 15:10 97.1 86 20 125/64 100 Room Air 01/07/18 14:55 97.1 86 20 125/64 100 Room Air 01/07/18 14:50 98.6 85 15 131/58 100 Room Air 01/07/18 14:45 98.4 87 13 136/55 99 Room Air 01/07/18 14:40 98.1 84 20 136/64 100 Room Air Intake and Output 01/07/18 01/08/18 19:00 07:00 Intake Total 1150 ml 825 ml Output Total 600 ml 1500 ml Balance 550 ml -675 ml Intake IV Total 650 ml 825 ml Blood Product 500 ml Output Urine Total 600 ml 1500 ml # Voids 2 3 Laboratory Tests Test 01/07/18 19:05 01/08/18 01:00 01/08/18 04:30 01/08/18 06:10 White Blood Count 9.4 K/UL (4.8-10.8) # 8.2 K/UL (4.8-10.8) 6.9 K/UL (4.8-10.8) Red Blood Count 2.70 M/UL (4.70-6.10) L 2.54 M/UL (4.70-6.10) L 2.66 M/UL (4.70-6.10) L Hemoglobin 8.5 G/DL (14.2-18.0) #L 7.9 G/DL (14.2-18.0) L 8.3 G/DL (14.2-18.0) L Hematocrit 25.2 % (42.0-52.0) #L 23.3 % (42.0-52.0) L 24.1 % (42.0-52.0) L Mean Corpuscular Volume 93 FL (80-99) 92 FL (80-99) 91 FL (80-99) Mean Corpuscular Hemoglobin 31.3 PG (27.0-31.0) H 31.0 PG (27.0-31.0) 31.2 PG (27.0-31.0) H Mean Corpuscular Hemoglobin Concent 33.6 G/DL (32.0-36.0) 33.9 G/DL (32.0-36.0) 34.4 G/DL (32.0-36.0) Red Cell Distribution Width 14.0 % (11.6-14.8) 13.9 % (11.6-14.8) 14.1 % (11.6-14.8) Platelet Count 205 K/UL (150-450) 194 K/UL (150-450) 202 K/UL (150-450) Mean Platelet Volume 4.8 FL (6.5-10.1) L 5.9 FL (6.5-10.1) L 5.7 FL (6.5-10.1) L Neutrophils (%) (Auto) 71.6 % (45.0-75.0) % (45.0-75.0) 69.0 % (45.0-75.0) Lymphocytes (%) (Auto) 19.2 % (20.0-45.0) L % (20.0-45.0) 20.3 % (20.0-45.0) Monocytes (%) (Auto) 8.5 % (1.0-10.0) % (1.0-10.0) 8.9 % (1.0-10.0) Eosinophils (%) (Auto) 0.2 % (0.0-3.0) % (0.0-3.0) 1.5 % (0.0-3.0) Basophils (%) (Auto) 0.4 % (0.0-2.0) % (0.0-2.0) 0.4 % (0.0-2.0) Prothrombin Time 11.1 SEC (9.30-11.50) Prothromb Time International Ratio 1.1 (0.9-1.1) Activated Partial Thromboplast Time 23 SEC (23-33) Sodium Level 145 MMOL/L (136-145) Potassium Level 3.8 MMOL/L (3.5-5.1) Chloride Level 111 MMOL/L (98-107) H Carbon Dioxide Level 25 MMOL/L (21-32) Anion Gap 9 mmol/L (5-15) Blood Urea Nitrogen 25 mg/dL (7-18) H Creatinine 0.9 MG/DL (0.55-1.30) Estimat Glomerular Filtration Rate > 60 mL/min (>60) Glucose Level 140 MG/DL (74-106) H Hemoglobin A1c 6.2 % (4.3-6.0) H Calcium Level 7.6 MG/DL (8.5-10.1) L Phosphorus Level 2.3 MG/DL (2.5-4.9) L Magnesium Level 1.5 MG/DL (1.8-2.4) L Total Bilirubin 0.8 MG/DL (0.2-1.0) Direct Bilirubin 0.2 MG/DL (0.0-0.3) Aspartate Amino Transf (AST/SGOT) 11 U/L (15-37) L Alanine Aminotransferase (ALT/SGPT) 19 U/L (12-78) Alkaline Phosphatase 47 U/L (46-116) Troponin I 0.005 ng/mL (0.000-0.056) Pro-B-Type Natriuretic Peptide 199 pg/mL (0-125) H Total Protein 5.7 G/DL (6.4-8.2) L Albumin 2.8 G/DL (3.4-5.0) L Globulin 2.9 g/dL Albumin/Globulin Ratio 1.0 (1.0-2.7) Triglycerides Level 143 MG/DL (30-150) Cholesterol Level 104 MG/DL (< 200) LDL Cholesterol 55 mg/dL (<100) HDL Cholesterol 32 MG/DL (40-60) L Cholesterol/HDL Ratio 3.3 (3.3-4.4) Test 01/08/18 12:45 White Blood Count 6.1 K/UL (4.8-10.8) Red Blood Count 2.78 M/UL (4.70-6.10) L Hemoglobin 8.5 G/DL (14.2-18.0) L Hematocrit 25.6 % (42.0-52.0) L Mean Corpuscular Volume 92 FL (80-99) Mean Corpuscular Hemoglobin 30.7 PG (27.0-31.0) Mean Corpuscular Hemoglobin Concent 33.3 G/DL (32.0-36.0) Red Cell Distribution Width 13.6 % (11.6-14.8) Platelet Count 225 K/UL (150-450) Mean Platelet Volume 6.0 FL (6.5-10.1) L Neutrophils (%) (Auto) 62.1 % (45.0-75.0) Lymphocytes (%) (Auto) 26.9 % (20.0-45.0) Monocytes (%) (Auto) 8.5 % (1.0-10.0) Eosinophils (%) (Auto) 1.8 % (0.0-3.0) Basophils (%) (Auto) 0.6 % (0.0-2.0) Objective HEAD AND NECK: No JVD. LUNGS: Clear. CARDIOVASCULAR: Regular S1 and S2 with no gallop or murmur. ABDOMEN: Soft. EXTREMITIES: No pitting edema. Aaron Lindsey MD Jan 08, 2018 14:35
[2018-01-08] MEDS ORDERED: LORazepam 1mg tab ORAL PRN (18:15)
[2018-01-08 19:08] LABS: BASOPHILS % (AUTO) 0.8 % (0.0-2.0); EOSINOPHILS % (AUTO) 1.9 % (0.0-3.0); HEMOGLOBIN 8.9 G/DL (14.2-18.0); LYMPHOCYTES % (AUTO) 18.9 % (20.0-45.0); MEAN CORPUSCULAR VOLUME 94 FL (80-99); NEUTROPHILS % (AUTO) 69.3 % (45.0-75.0); PLATELET COUNT 255 K/UL (150-450); RED BLOOD COUNT 2.87 M/UL (4.70-6.10); RED CELL DISTRIBUTION WIDTH 14.2 % (11.6-14.8); WHITE BLOOD COUNT 8.6 K/UL (4.8-10.8)
--- NOTE | 2018-01-08 19:15 | Procedure Note ---
DATE OF PROCEDURE: 01/08/2018 GASTROENTEROLOGY PROCEDURE REPORT PROCEDURE: Upper gastrointestinal endoscopy with biopsy. SURGEON: Andrew Pederson M.D. ANESTHESIA: Please see the separate anesthesiologist's notes. PRE-ENDOSCOPIC DIAGNOSIS: Upper gastrointestinal bleeding. POST-ENDOSCOPIC DIAGNOSIS: 1. No esophageal varices. 2. A 1 cm gastric ulcer with flat base and no bleeding. 3. A 1 cm duodenal ulcer with flat base, no bleeding. 4. Status post biopsy of the antrum and ulcer edge. PROCEDURE: The procedure, its risks, indications, alternatives, and possible complications were explained and informed consent was obtained. The endoscope was introduced through the oropharynx and advanced to the duodenum. The endoscope was then gradually withdrawn and the mucosa examined carefully. No active bleeding was identified. The biopsies of the antrum also was sent to pathology for review. The endoscope was removed. The patient was sent to recovery in good condition. COMPLICATIONS: None. RECOMMENDATIONS: 1. Resume oral diet. 2. Discontinue Sandostatin. 3. Check biopsy results. 4. Check and treat Helicobacter pylori if positive. Andrew Pederson M.D. DR: Oni JOB#: [id number] CC: LISA
[2018-01-08] MEDS ORDERED: Tamsulosin 0.4mg cap ORAL SCH ×2 (21:00)
[2018-01-08] MEDS ORDERED: Atorvastatin 20mg tab ORAL SCH ×2 (21:00)
[2018-01-08] MEDS ORDERED: Levemir Flexpen SUBQ SCH (21:00)
[2018-01-08] MEDS: NovoLOG Insulin Flexpen SUBQ SCH (21:05)
[2018-01-09] VITALS: BP 103/58
[2018-01-09 04:00] VITALS: BP 111/61
[2018-01-09] MEDS: Pantoprazole 80 MG in NS 250 ML IV SCH (06:28)
[2018-01-09] MEDS: NovoLOG Insulin Flexpen SUBQ SCH (06:33)
[2018-01-09 07:43] LABS: PHOSPHORUS 3.6 MG/DL (2.5-4.9)
[2018-01-09 08:00] VITALS: BP 119/64
[2018-01-09 08:42] VITALS: BP 119/64
[2018-01-09] MEDS: Metoprolol Tartrate 12.5mg TAB NG SCH (08:42)
[2018-01-09] MEDS ORDERED: Thiamine 100mg tab ORAL SCH ×2 (09:00)
[2018-01-09] MEDS ORDERED: PROTONIX40 MG ORAL (09:29)
--- NOTE | 2018-01-09 09:31 | Discharge Instructions ---
Discharge Instructions Discharge Instructions Follow up with: primary doctor in 1 week and GI specialist in a month for repeat EGD Call MD/Return to Hospital if: vomiting blood, or abdominal pain Diet: cardiac 2 GM Na, low fat Resume Normal Activity?: Yes Activity: resume normal activities For Surgical Patients Contact your physician for: bleeding, pain, tenderness For Congestive Heart Failure Reminder Report to your physician any weight gain of 5 pounds or more in one week. Lindsey Granda DO Jan 09, 2018 09:31
--- NOTE | 2018-01-09 10:24 | General Progress Note ---
Assessment/Plan Problem List: (1) Duodenal ulcer ICD Codes: K26.9 - Duodenal ulcer, unspecified as acute or chronic, without hemorrhage or perforation SNOMED: 91935921 (2) Ulcer, gastric, acute ICD Codes: K25.3 - Acute gastric ulcer without hemorrhage or perforation SNOMED: 25016650 (3) Diabetes ICD Codes: E11.9 - Type 2 diabetes mellitus without complications SNOMED: 87254656 (4) Hypertension ICD Codes: I10 - Essential (primary) hypertension SNOMED: 63940799 (5) CHF (congestive heart failure) ICD Codes: I50.9 - Heart failure, unspecified SNOMED: 91712742 (6) Alcohol abuse ICD Codes: F10.10 - Alcohol abuse, uncomplicated SNOMED: 14696976 (7) Hypoalbuminemia ICD Codes: E88.09 - Other disorders of plasma-protein metabolism, not elsewhere classified SNOMED: 041179393 Assessment/Plan UGIB (hgb 5.6) likely 22 verices vs ulcer vs duelfoy lesion - appreciate consult by Dr. Fitzgerald and Dr Pickard - EGD reviewed: no active bleed, gastric antrum ulcer and duodenal bulb ulcer - 2 units PRBC from the ER , hgb stable since - hemodynamic monitoring - continue protonix 40 mg PI BID for 30 days with f/u EGD in 1 month with GI - abd US reviewed; no liver pathology HTN - continue medical management DM (a21 6, suspect possible inaccurate in the setting of severe anemia, will repeat) - continue home meds CHF - cont meds - appreciate cards consult by Dr Lindsey - prelim echo EF WNL BPH -ok to restart meds, BP stable Etoh Abuse - educated patient on cessation Hypoalbuminemia 2/2 nutritional status - nutritional support - rec ensure TID Dispo - home with son I have spent 30 minutes regarding patient discharge and counseling. Subjective Date patient seen: Jan 09, 2018 Time patient seen: 09:00 Allergies: Coded Allergies: No Known Allergies (Unverified , 01/07/18) Subjective patient denies dizziness, hematemesis, nausea or vomiting and tolerating clear liquid diet. Objective Last 24 Hour Vital Signs Date Time Temp Pulse Resp B/P (MAP) Pulse Ox O2 Delivery O2 Flow Rate FiO2 01/09/18 08:42 62 119/64 01/09/18 08:00 98.1 62 18 119/64 (82) 97 01/09/18 04:00 97.2 61 18 111/61 (78) 95 01/09/18 00:00 98.1 59 18 103/58 (73) 100 01/08/18 21:00 Room Air 01/08/18 20:44 68 138/77 01/08/18 20:00 97.7 68 19 138/77 (97) 96 01/08/18 16:00 Room Air 01/08/18 16:00 98.4 62 15 137/58 (84) 96 01/08/18 16:00 77 01/08/18 15:00 63 16 135/58 (83) 99 01/08/18 14:00 65 16 126/103 (111) 97 01/08/18 13:00 64 16 87/76 (80) 97 01/08/18 12:45 72 18 100 01/08/18 12:43 72 18 100 01/08/18 12:00 67 01/08/18 12:00 Room Air 01/08/18 12:00 99.0 65 16 102/76 (85) 98 01/08/18 11:00 65 14 131/63 (85) 98 Intake and Output 01/08/18 01/09/18 18:59 06:59 Intake Total 985 ml 475 ml Output Total 1350 ml 1900 ml Balance -365 ml -1425 ml Intake Oral 360 ml 250 ml IV Total 625 ml 225 ml Output Urine Total 1350 ml 1900 ml # Voids 6 Laboratory Tests 01/08/18 12:35: Ferritin 18 01/08/18 12:45: White Blood Count 6.1, Red Blood Count 2.78L, Hemoglobin 8.5L, Hematocrit 25.6L , Mean Corpuscular Volume 92, Mean Corpuscular Hemoglobin 30.7, Mean Corpuscular Hemoglobin Concent 33.3, Red Cell Distribution Width 13.6, Platelet Count 225, Mean Platelet Volume 6.0L, Neutrophils (%) (Auto) 62.1, Lymphocytes ( %) (Auto) 26.9, Monocytes (%) (Auto) 8.5, Eosinophils (%) (Auto) 1.8, Basophils (%) (Auto) 0.6 01/08/18 18:58: White Blood Count 8.6, Red Blood Count 2.87L, Hemoglobin 8.9L, Hematocrit 27.0L , Mean Corpuscular Volume 94, Mean Corpuscular Hemoglobin 31.2H, Mean Corpuscular Hemoglobin Concent 33.1, Red Cell Distribution Width 14.2, Platelet Count 255, Mean Platelet Volume 5.8L, Neutrophils (%) (Auto) 69.3, Lymphocytes ( %) (Auto) 18.9L, Monocytes (%) (Auto) 9.0, Eosinophils (%) (Auto) 1.9, Basophils (%) (Auto) 0.8 01/09/18 06:14: Phosphorus Level 3.6, Magnesium Level 2.3 Height (Feet): 5 Height (Inches): 7.00 Weight (Pounds): 151 General Appearance: WD/WN, no apparent distress, alert EENT: PERRL/EOMI, normal ENT inspection, TMs normal, pharynx normal Neck: non-tender, normal alignment, supple, normal inspection Cardiovascular: normal peripheral pulses, normal rate, regular rhythm, regularly irregular, no gallop/murmur, no JVD Respiratory/Chest: chest wall non-tender, lungs clear, normal breath sounds, no respiratory distress, no accessory muscle use Abdomen: normal bowel sounds, non tender, soft, no organomegaly, no mass, abnormal bowel sounds Extremities: normal range of motion, non-tender, normal inspection, no calf tenderness Edema: no edema noted Arm (L), no edema noted Arm (R), no edema noted Leg (L), no edema noted Leg (R), no edema noted Pedal (L), no edema noted Pedal (R), no edema noted Generalized Neurologic: lead generation representative II-XII grossly normal, no motor/sensory deficits, oriented x 3 , responsive, normal mood/affect Skin: normal pigmentation, warm/dry Lindsey Granda DO Jan 09, 2018 10:24
--- NOTE | 2018-01-09 10:54 | General Progress Note ---
Assessment/Plan Status: stable Assessment/Plan # Anemia of iron deficiency due to underlying chronic medical issues, multifactorial. Ferritin 18. --> Anemia w/u has been reviewed. Will trend CBC daily. --> Hgb goal >7. Transfuse prn. --> No evidence of hemolysis is noted, peripheral smear has been reviewed. --> Cont po folic acid and thiamine daily. --> Blood tx: 01/07, # GI hemorrhage. GI is following. Appreciate recs. --> S/P EGD. --> protonix gtt and octreotide gtt --> no signs of ascites, does not require rocephin at this time # DM. Levemir, lispro and ISS # HTN. Cont BP meds. # CHF. Hold asa and heart meds in setting of bleed # Alcohol abuse. --> thiamine and folic acid --> ativan PRN for seizures --> monitor for withdrawal --> cessation education GREATLY APPRECIATE CONSULTATION. Subjective Date patient seen: Jan 09, 2018 ROS Limited/Unobtainable: Yes Hematologic/Lymphatic: Reports: anemia Allergies: Coded Allergies: No Known Allergies (Unverified , 01/07/18) Subjective Pt awake and alert. No active bleeding. H/H stable. Objective Last 24 Hour Vital Signs Date Time Temp Pulse Resp B/P (MAP) Pulse Ox O2 Delivery O2 Flow Rate FiO2 01/09/18 08:42 62 119/64 01/09/18 08:00 98.1 62 18 119/64 (82) 97 01/09/18 04:00 97.2 61 18 111/61 (78) 95 01/09/18 00:00 98.1 59 18 103/58 (73) 100 01/08/18 21:00 Room Air 01/08/18 20:44 68 138/77 01/08/18 20:00 97.7 68 19 138/77 (97) 96 01/08/18 16:00 Room Air 01/08/18 16:00 98.4 62 15 137/58 (84) 96 01/08/18 16:00 77 01/08/18 15:00 63 16 135/58 (83) 99 01/08/18 14:00 65 16 126/103 (111) 97 01/08/18 13:00 64 16 87/76 (80) 97 01/08/18 12:45 72 18 100 01/08/18 12:43 72 18 100 01/08/18 12:00 67 01/08/18 12:00 Room Air 01/08/18 12:00 99.0 65 16 102/76 (85) 98 01/08/18 11:00 65 14 131/63 (85) 98 Intake and Output 01/08/18 01/09/18 18:59 06:59 Intake Total 985 ml 475 ml Output Total 1350 ml 1900 ml Balance -365 ml -1425 ml Intake Oral 360 ml 250 ml IV Total 625 ml 225 ml Output Urine Total 1350 ml 1900 ml # Voids 6 Laboratory Tests 01/08/18 12:35: Ferritin 18 01/08/18 12:45: White Blood Count 6.1, Red Blood Count 2.78L, Hemoglobin 8.5L, Hematocrit 25.6L , Mean Corpuscular Volume 92, Mean Corpuscular Hemoglobin 30.7, Mean Corpuscular Hemoglobin Concent 33.3, Red Cell Distribution Width 13.6, Platelet Count 225, Mean Platelet Volume 6.0L, Neutrophils (%) (Auto) 62.1, Lymphocytes ( %) (Auto) 26.9, Monocytes (%) (Auto) 8.5, Eosinophils (%) (Auto) 1.8, Basophils (%) (Auto) 0.6 01/08/18 18:58: White Blood Count 8.6, Red Blood Count 2.87L, Hemoglobin 8.9L, Hematocrit 27.0L , Mean Corpuscular Volume 94, Mean Corpuscular Hemoglobin 31.2H, Mean Corpuscular Hemoglobin Concent 33.1, Red Cell Distribution Width 14.2, Platelet Count 255, Mean Platelet Volume 5.8L, Neutrophils (%) (Auto) 69.3, Lymphocytes ( %) (Auto) 18.9L, Monocytes (%) (Auto) 9.0, Eosinophils (%) (Auto) 1.9, Basophils (%) (Auto) 0.8 01/09/18 06:14: Phosphorus Level 3.6, Magnesium Level 2.3 Height (Feet): 5 Height (Inches): 7.00 Weight (Pounds): 151 General Appearance: no apparent distress, alert EENT: PERRL/EOMI Neck: normal alignment Cardiovascular: normal peripheral pulses Respiratory/Chest: no respiratory distress Abdomen: soft Molina Ramirez MD Jan 09, 2018 10:54
--- NOTE | 2018-01-09 11:38 | GI Progress Note ---
Assessment/Plan Problems: (1) Ulcer, gastric, acute ICD Codes: K25.3 - Acute gastric ulcer without hemorrhage or perforation SNOMED: 92608890 (2) Duodenal ulcer ICD Codes: K26.9 - Duodenal ulcer, unspecified as acute or chronic, without hemorrhage or perforation SNOMED: 05106850 (3) Hypertension ICD Codes: I10 - Essential (primary) hypertension SNOMED: 80643203 (4) Diabetes ICD Codes: E11.9 - Type 2 diabetes mellitus without complications SNOMED: 16372953 (5) Alcohol abuse ICD Codes: F10.10 - Alcohol abuse, uncomplicated SNOMED: 75382571 Status: stable Status Narrative Discussed with Dr. James. Assessment/Plan POST-ENDOSCOPIC DIAGNOSIS: 1. No esophageal varices. 2. A 1 cm gastric ulcer with flat base and no bleeding. 3. A 1 cm duodenal ulcer with flat base, no bleeding. 4. Status post biopsy of the antrum and ulcer edge. RECOMMENDATIONS: patient scheduled for dc today. rx given to patient family for protonix and carafate outpatient follow up for biopsies The patient was seen and examined at bedside and all new and available data was reviewed in the patients chart. I agree with the above findings, impression and plan. (Patient seen earlier today. Signature stamp does not reflect patient encounter time.). - Merritt James MD Subjective Gastrointestinal/Abdominal: Reports: no symptoms Objective Last 24 Hour Vital Signs Date Time Temp Pulse Resp B/P (MAP) Pulse Ox O2 Delivery O2 Flow Rate FiO2 01/09/18 09:00 Room Air 01/09/18 08:42 62 119/64 01/09/18 08:00 98.1 62 18 119/64 (82) 97 01/09/18 04:00 97.2 61 18 111/61 (78) 95 01/09/18 00:00 98.1 59 18 103/58 (73) 100 01/08/18 21:00 Room Air 01/08/18 20:44 68 138/77 01/08/18 20:00 97.7 68 19 138/77 (97) 96 01/08/18 16:00 Room Air 01/08/18 16:00 98.4 62 15 137/58 (84) 96 01/08/18 16:00 77 01/08/18 15:00 63 16 135/58 (83) 99 01/08/18 14:00 65 16 126/103 (111) 97 01/08/18 13:00 64 16 87/76 (80) 97 01/08/18 12:45 72 18 100 01/08/18 12:43 72 18 100 01/08/18 12:00 67 01/08/18 12:00 Room Air 01/08/18 12:00 99.0 65 16 102/76 (85) 98 Intake and Output 01/08/18 01/09/18 18:59 06:59 Intake Total 985 ml 475 ml Output Total 1350 ml 1900 ml Balance -365 ml -1425 ml Intake Oral 360 ml 250 ml IV Total 625 ml 225 ml Output Urine Total 1350 ml 1900 ml # Voids 6 Laboratory Tests Test 01/08/18 12:35 01/08/18 12:45 01/08/18 18:58 01/09/18 06:14 Ferritin 18 NG/ML (8-388) White Blood Count 6.1 K/UL (4.8-10.8) 8.6 K/UL (4.8-10.8) Red Blood Count 2.78 M/UL (4.70-6.10) L 2.87 M/UL (4.70-6.10) L Hemoglobin 8.5 G/DL (14.2-18.0) L 8.9 G/DL (14.2-18.0) L Hematocrit 25.6 % (42.0-52.0) L 27.0 % (42.0-52.0) L Mean Corpuscular Volume 92 FL (80-99) 94 FL (80-99) Mean Corpuscular Hemoglobin 30.7 PG (27.0-31.0) 31.2 PG (27.0-31.0) H Mean Corpuscular Hemoglobin Concent 33.3 G/DL (32.0-36.0) 33.1 G/DL (32.0-36.0) Red Cell Distribution Width 13.6 % (11.6-14.8) 14.2 % (11.6-14.8) Platelet Count 225 K/UL (150-450) 255 K/UL (150-450) Mean Platelet Volume 6.0 FL (6.5-10.1) L 5.8 FL (6.5-10.1) L Neutrophils (%) (Auto) 62.1 % (45.0-75.0) 69.3 % (45.0-75.0) Lymphocytes (%) (Auto) 26.9 % (20.0-45.0) 18.9 % (20.0-45.0) L Monocytes (%) (Auto) 8.5 % (1.0-10.0) 9.0 % (1.0-10.0) Eosinophils (%) (Auto) 1.8 % (0.0-3.0) 1.9 % (0.0-3.0) Basophils (%) (Auto) 0.6 % (0.0-2.0) 0.8 % (0.0-2.0) Phosphorus Level 3.6 MG/DL (2.5-4.9) Magnesium Level 2.3 MG/DL (1.8-2.4) Height (Feet): 5 Height (Inches): 7.00 Weight (Pounds): 151 General Appearance: WD/WN, no apparent distress, alert Cardiovascular: normal rate Respiratory/Chest: normal breath sounds, no respiratory distress Abdominal Exam: normal bowel sounds, non tender, soft Extremities: normal range of motion, non-tender Jose Car NP Jan 09, 2018 11:38
--- NOTE | 2018-01-09 16:16 | Cardiology Report ---
APPROVED REPORT EKG Measurement Heart [id number] Normal sinus rhythm Normal ECG
== END 2018-01-09 10:45 | disposition home or self-care (01) | DRG 379 ==
LOC: EDBD 10:11 → EMR 10:35 → ICU 11:46 → EDBEDREQ 14:34 → 4E 01-08 16:59
PROC: 0DB78ZX Excision of Stomach, Pylorus, Via Natural or Artificial Opening Endoscopic, Diagnostic (ICD-10-PCS; principal; 2018-01-07)
PROC: 30233N1 Transfusion of Nonautologous Red Blood Cells into Peripheral Vein, Percutaneous Approach (ICD-10-PCS; 2018-01-08)
DX: K25.0 Acute gastric ulcer with hemorrhage (principal); K26.0 Acute duodenal ulcer with hemorrhage; I11.0 Hypertensive heart disease with heart failure; E11.9 Type 2 diabetes mellitus without complications; F10.10 Alcohol abuse, uncomplicated; N40.0 Benign prostatic hyperplasia without lower urinary tract symptoms; Z79.84 Long term (current) use of oral hypoglycemic drugs; E88.09 Other disorders of plasma-protein metabolism, not elsewhere classified; R55 Syncope and collapse; D50.9 Iron deficiency anemia, unspecified
CPT/HCPCS: 36415; 71045; 76700; 80048; 80053; 80061; 80076; 80307; 80329; 81003; 82550; 82553; 82607; 82728; 82746; 82962; 83036; 83540; 83550; 83690; 83735; 83880; 84100; 84484; 85007; 85025; 85044; 85610; 85730; 86850; 86900; 86901; 86920; 87081; 93005; 93306; 94003; 94150; 96365; 96366; 96375; 99291; C9399; J1815; S5561